=== PATIENT | male | born 1980 | race African-American/Black ===

== ENCOUNTER 2018-11-25 16:53 | Inpatient (IN) | payer BC ==
[~2018-11-25] VITALS: Ht 177.8 cm; Wt 94.3 kg
[2018-11-25] MEDS ORDERED: NAPROXEN 500 MG TABLET PO STA (17:13)
[2018-11-25] MEDS ORDERED: HYDROcodone/APAP 5/325MG 1 TAB TABLET PO ONE (17:30)
--- NOTE | 2018-11-25 18:05 | RAD ---
Examination: WRIST 3V LEFT History: pt fall today left wrist deformity hx of forearm sx Comparison/Correlation: None Findings: Total of 3 images of the left wrist were obtained. Comminuted fractures of the distal radial metaphysis with extension into the joint space noted. Mild displacement of fracture fragments noted. Linear extension of fracture into the distal radial diametaphyseal region is also evident. Transverse fracture of the ulnar styloid base is present with displacement. Plate and associated screws involving the distal ulna but are not fully included for complete assessment. Soft tissue swelling is noted at the distal ulnar region. Impression: Distal radial metaphyseal comminuted fracture is with intra-articular extension. Displaced ulnar styloid fracture. Electronically signed by: Omari Kaur MD (11/25/2018 6:02 PM) [place] [id number]
--- NOTE | 2018-11-25 18:07 | RAD ---
Examination: HIP RIGHT 2V WITH PELVIS History: FALL YESTURDAY Comparison/Correlation: None Findings: Frontal view of the pelvis was obtained. Frontal view of the right hip and frog-leg lateral view of the right hip were provided. Oblique fractures of the intertrochanteric region are present but nondisplaced. Above the knee amputation noted. Right hip joint space is adequate. Postoperative findings involving the symphysis pubis noted with plates and screws as well as surgical clips. The lateral aspect of the left greater trochanter was not fully included. Bone island noted and appears involve the left iliac bone medially. Repeat densities involving the right hip pelvic region noted corresponding to previous intervention. A screw is noted overlying the superior aspect of the right sacroiliac joint. Inferior vena cava filter noted. Impression: Nondisplaced right intertrochanteric fractures. Electronically signed by: Omari Kaur MD (11/25/2018 6:04 PM) [facility]
[2018-11-25 18:27] LABS: BASO % 0 % (0-3); EOS % 0 % (0-3); HEMATOCRIT 41.6 % (39.0-53.0); LYMPH # 1.5 x10^3/uL (1.0-4.8); LYMPH % 17 % (24-48); MEAN CORPUSCULAR HEMOGLOBIN 31 pg (25-35); MEAN CORPUSCULAR HGB CONC 34 g/dL (31-37); MEAN CORPUSCULAR VOLUME 92 fL (79-100); MONO # 0.8 x10^3/uL (0.0-1.1); MONO % 10 % (0-9); NEUT # 6.2 x10^3uL (1.8-7.7); NEUT % 72 % (31-73); PLATELET COUNT 215 x10^3/uL (140-400); RED BLOOD COUNT 4.52 x10^6/uL (4.30-5.70); RED CELL DISTRIBUTION WIDTH 14.4 % (11.5-14.5); WHITE BLOOD COUNT 8.6 x10^3/uL (4.0-11.0)
[2018-11-25 18:38] LABS: PROTHROMBIN TIME PATIENT 14.1 SEC (11.7-14.0)
[2018-11-25 18:45] LABS: CALCIUM 9.2 mg/dL (8.5-10.1); CREATININE 0.9 mg/dL (0.7-1.3); GFR 114.3; POTASSIUM 3.4 mmol/L (3.5-5.1)
[2018-11-25] MEDS ORDERED: ONDANSETRON PF 4 MG/2 ML VIAL. IV ONE (18:45)
[2018-11-25] MEDS ORDERED: MORPHINE SULFATE 10 MG/ML VIAL. IV ONE (18:45)
[2018-11-25 18:50] LABS: ALBUMIN 3.7 g/dL (3.4-5.0); ALBUMIN/GLOBULIN RATIO 0.9 (1.0-1.7); TOTAL BILIRUBIN 0.8 mg/dL (0.2-1.0); TOTAL PROTEIN 7.6 g/dL (6.4-8.2)
[2018-11-25] MEDS ORDERED: ONDANSETRON PF 4 MG/2 ML VIAL. IV PRN (19:15)
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
[2018-11-25 19:30] VITALS: BP 142/72
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
[2018-11-25 23:00] VITALS: BP 163/83
[2018-11-25] MEDS: MORPHINE SULFATE 4 MG/ML VIAL. IV PRN (23:28)
[2018-11-26] VITALS (11 sets, daily range): BP systolic 119–162; BP diastolic 63–93
[2018-11-26] MEDS: MORPHINE SULFATE 4 MG/ML VIAL. IV PRN ×2 (06:56→11:19)
[2018-11-26] MEDS ORDERED: IV RINGERS,LACTATED 1000ML 1,000 ML IV SCH (08:22)
[2018-11-26] MEDS ORDERED: HYDROmorphone 2 MG/ML VIAL IV PRN (08:30)
[2018-11-26] MEDS ORDERED: fentaNYL PF VIAL 100 MCG/2 ML VIAL IV PRN ×2 (08:30→20:15)
[2018-11-26] MEDS ORDERED: PROCHLORPERAZINE 10 MG/2 ML VIAL. IV PRN (08:30)
[2018-11-26] MEDS ORDERED: MORPHINE SULFATE 2 MG/ML VIAL. IV PRN ×2 (08:30→20:15)
[2018-11-26] MEDS ORDERED: ONDANSETRON PF 4 MG/2 ML VIAL. IV PRN ×3 (08:30→20:15)
[2018-11-26 08:45] LABS: BASO % 0 % (0-3); EOS % 1 % (0-3); HEMATOCRIT 41.5 % (39.0-53.0); HEMOGLOBIN 13.5 g/dL (13.0-17.5); LYMPH # 1.5 x10^3/uL (1.0-4.8); LYMPH % 22 % (24-48); MEAN CORPUSCULAR HEMOGLOBIN 31 pg (25-35); MEAN CORPUSCULAR HGB CONC 33 g/dL (31-37); MEAN CORPUSCULAR VOLUME 94 fL (79-100); MONO # 0.8 x10^3/uL (0.0-1.1); MONO % 12 % (0-9); NEUT # 4.4 x10^3uL (1.8-7.7); NEUT % 66 % (31-73); PLATELET COUNT 202 x10^3/uL (140-400); RED BLOOD COUNT 4.42 x10^6/uL (4.30-5.70); RED CELL DISTRIBUTION WIDTH 14.5 % (11.5-14.5); WHITE BLOOD COUNT 6.7 x10^3/uL (4.0-11.0)
[2018-11-26 09:00] LABS: CALCIUM 9.4 mg/dL (8.5-10.1); CREATININE 0.8 mg/dL (0.7-1.3); GFR 130.9; POTASSIUM 4.1 mmol/L (3.5-5.1)
[2018-11-26] MEDS ORDERED: LIDOCAINE 2% PF 5 ML VIAL. ONE (13:02)
[2018-11-26] MEDS ORDERED: ONDANSETRON PF 4 MG/2 ML VIAL. ONE (13:02)
[2018-11-26] MEDS ORDERED: fentaNYL PF VIAL 100 MCG/2 ML VIAL ONE (13:02)
[2018-11-26] MEDS ORDERED: PROPOFOL 20 ML IV ONE (13:02)
[2018-11-26] MEDS ORDERED: MIDAZOLAM HCL/PF 2 MG/2 ML VIAL. ONE (13:02)
[2018-11-26] MEDS ORDERED: DEXAMETHASONE SOD PHOS 4 MG/ML VIAL ONE (13:03)
[2018-11-26] MEDS ORDERED: ROCURONIUM 50 MG/5 ML VIAL. ONE (13:03)
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
[2018-11-26] MEDS ORDERED: BUPIVACAINE-EPI 0.25%-1:200000 MPF 30 ML VIAL. ONE ×2 (15:28→17:04)
[2018-11-26] MEDS ORDERED: FAMOTIDINE 20 MG/2 ML VIAL ONE (15:59)
[2018-11-26] MEDS ORDERED: SEVOFLURANE > 120 MINUTES. IH ONE (16:38)
[2018-11-26] MEDS ORDERED: ceFAZolin SODIUM 1 GM VIAL ONE (16:38)
[2018-11-26] MEDS ORDERED: PHENYLEPHRINE in 0.9% NACL PF 1 MG/10 ML SYRINGE. IV ONE (16:38)
[2018-11-26] MEDS: fentaNYL PF VIAL 100 MCG/2 ML VIAL IV PRN ×2 (18:51→19:06)
[2018-11-26] MEDS ORDERED: ceFAZolin SODIUM IV Push 1 GM VIAL. IVP ONE (20:00)
[2018-11-26] MEDS ORDERED: MORPHINE SULFATE 4 MG/ML VIAL. IV PRN (20:00)
[2018-11-26] MEDS ORDERED: HYDROcodone/APAP 5/325MG 1 TAB TABLET PO PRN (20:00)
[2018-11-26] MEDS ORDERED: oxyCODONE IR 5 MG TABLET PO PRN (20:15)
[2018-11-26] MEDS ORDERED: POLYETHYLENE GLYCOL 3350 17 GM PACKET. PO PRN (20:15)
[2018-11-26] MEDS ORDERED: HYDROcodone/APAP 7.5/325MG 1 TAB TABLET PO PRN (20:15)
[2018-11-26] MEDS ORDERED: DEXTROSE 50% 25 GM / 50ML DISP.SYRIN. IV PRN (20:15)
--- NOTE | 2018-11-26 20:25 | PDOC4 ---
Operative Note Operative Note Date of Procedure: November 26, 2018 Pre-Op Diagnoses: * S72.144A Nondisplaced intertrochanteric fracture of right femur, initial encounter for closed fracture * S52.572A Other intra-articular fracture of lower end of left radius, initial encounter for closed fracture Post-Op Diagnosis: same Procedures: * CPT 26410 right hip treatment of intertrochanteric femoral fracture with intramedullary implant, with interlocking screws * CPT 10709 left wrist open treatment of distal radial intra-articular fracture with internal fixation of 3 or more fragments Surgeon: Dandy Shane MD Pole Framer Machine: DAMEON Muñoz Anesthesia Type: General EBL: 200 mL Specimens Obtained: none Complications: None Implant Company: [employer] Tourniquet time: 35 minutes Implants: * Gamma 3 Locking Nail 11 mm x 180 mm x 125; Gamma 3 system Lag Screw Titanium 10.5 mm x 90 mm; locking screw fully threaded 5 mm x 40 mm * VariAx 2 Distal Radius Plating System with associated nonlocking and locking screws INDICATION FOR PROCEDURE: This patient is 38 years old uses an above-knee prosthesis, and fell, sustaining a right hip fracture and left wrist fracture. X-rays show a nondisplaced intertrochanteric hip fracture. The patient and I discussed the risks, benefits and alternatives of treatment. The alternative for hip fracture treatment is bedrest, which I generally do not recommend. I recommended intramedullary nailing, and I talked to him about the potential risks of this, including bleeding, infection, blood clots, malunion, nonunion or other potential surgical or anesthetic complications. X-rays showed an intraarticular distal radius fracture with displacement and shortening. I recommended open treatment with internal fixation. We talked about potential risks of surgery such as bleeding, infection, stiffness, arthritis need for hardware removal or other potential surgical or anesthetic complications. The patient stated understanding of the risks, benefits and alternatives. All of the questions about surgery were answered, and he desired to proceed. A written consent was obtained. PROCEDURE IN DETAIL: The patient was identified in the preoperative holding area. The correct right hip was marked by me. The patient was taken to the operating room, where the patient was anesthetized by the Department of Anesthesia. Preoperative antibiotics were given intravenously. A radiolucent table was used. The well leg was placed in a padded lithotomy leg walker. A time-out procedure was performed. The image intensifier was used, and the fracture site confirmed. All of the images were interpreted intraoperatively by me, and the image intensifier was used throughout the case. The right hip area was prepared in sterile fashion with ChloraPrep solution. Extremity drapes were used along with Ioban drapes around the hip. Throughout the case, Zaria my nurseryman assistant manipulated the above-knee amputation residual limb as needed. Fortunately no reduction was needed, so no traction was required. The residual limb was frequently abducted, abducted, or internally or externally rotated by Ms Mcfadden at my direction. An incision was made over the superior aspect of the greater trochanter. A 3.2 mm guide pin was placed at the tip of the greater trochanter, and advanced into the intramedullary canal. The one step conical reamer was used over the guidewire, and a reamer sleeve was used to protect the soft tissues. A guide wire was placed down the intramedullary canal, and reaming up to size 13 mm was performed to allow the nail to be inserted easily.The chosen nail was attached to the targeting device with the Nail Holding Screw. The nail was placed down the canal on the targeting device and the position confirmed on the image intensifier. A second incision was now used over the lower part of the greater trochanter, to place a guide pin through the guide, near the center-center position of the femoral head, and measured. The tunnel for the lag screw was reamed using the cannulated Lag Screw Step Drill. The chosen lag screw was inserted using the guide and advanced until there was a low tip-apex distance, by using sequential checks on the image intensifier. Traction on the HANA table was released. A Set Screw was now placed to lock the Lag Screw. Finally, a 5.0 mm diameter Distal Cross Lock Screw was, using the targeting guide after predrilling, and measuring. Satisfactory fracture reduction and hardware position was obtained using image intensifier views in multiple planes. Copious irrigation was used and the fascia was closed with #2 Vicryl. Bovie electrocautery was used for hemostasis. I completed the closure with 2-0 Vicryl and sarah. Bupivacaine with epinephrine was injected for hemostasis and pain relief.A bulky sterile dressing was applied. Antibiotics were redosed. A padded tourniquet was placed on the upper right arm. The limb was prepared with Chloraprep Surgical Solution, and sterile drapes were applied. An Esmarch bandage was used to exsanguinate the limb and the tourniquet was inflated. The volar approach of Vinicio was used distally. Sharp dissection was used and Bovie electrocautery was used as needed for hemostasis. The flexor carpi radialis tendon was retracted ulnarly to protect the median nerve. The brachioradialis was retracted radially to protect the radial artery. My nurseryman assistant held small Hohmann retractors on the radial side of the distal fragment and ulnar side of the proximal fragment to help maintain reduction. A Weitlaner retractor was also placed. Subperiosteal dissection of the pronator quadratus was performed after an L incision was made and the muscle was reflected across the fracture site. The fracture was easily identified but markedly displaced, comminuted and unstable. I performed a reduction, and using longitudinal traction, palmar angulation and ulnar deviation. With the comminuted intra-articular fracture held reduced, multiple K wires were placed to stabilize the fracture. My nurseryman assistant held Hohmann retractors radially and ulnarly to help restore the articular surface and compressed the Near the scapholunate interval.The volar lunate facet fracture was fixated with a K wire which was left in place as part of the fixation for stabilization of that fragment. The image intensifier was used throughout the procedure. All of the images were interpreted intraoperatively by me. I used the VariAx plate for a left wrist. I placed a preliminary beaded guidewire, and then a cortical screw proximally and used the image intensifier to adjust the position of the plate. I then applied distal nonlocking screws for compression to the bone to the plate, followed by locking screws distally. I placed additional cortex locking screws proximally. I confirmed the intraarticular reduction the image intensifier. After satisfactory reduction and satisfactory fixation with all the screws, final images were taken. Copious irrigation was used. The tourniquet was released and Bovie electrocautery was used for hemostasis. 2-0 Vicryl suture was used on a bleeding branch from the radial artery. Local anesthetic was injected. The incision was closed with 3-0 Vicryl in the subcutaneous tissues and 3-0 Prolene in the skin. Xeroform and a sterile dressing and a volar splint were applied. Needle and sponge counts were correct. There were no apparent complic ations. The patient was gently transferred from the fracture table back to a hospital bed. There were no apparent complications. DANDY SHANE MD Nov 26, 2018 20:25
[2018-11-26] MEDS: ASPIRIN ENTERIC COATED 325 MG TABLET.DR. PO SCH (21:24)
[2018-11-26] MEDS: IV 1/2 NORMAL SALINE 1,000 ML IV SCH (21:25)
[2018-11-26] MEDS: HYDROcodone/APAP 7.5/325MG 1 TAB TABLET PO PRN (21:25)
[2018-11-27] MEDS: MORPHINE SULFATE 4 MG/ML VIAL. IV PRN ×2 (02:31→06:04)
[2018-11-27 03:00] VITALS: BP 138/78
[2018-11-27] MEDS ORDERED: MAGNESIUM HYDROXIDE 2,400 MG/30 ML ORAL.SUSP. PO PRN (06:00)
[2018-11-27 07:00] VITALS: BP 147/59
[2018-11-27 07:16] LABS: BASO % 0 % (0-3); EOS % 0 % (0-3); HEMOGLOBIN 12.5 g/dL (13.0-17.5); LYMPH # 1.5 x10^3/uL (1.0-4.8); LYMPH % 13 % (24-48); MEAN CORPUSCULAR HEMOGLOBIN 31 pg (25-35); MEAN CORPUSCULAR HGB CONC 33 g/dL (31-37); MEAN CORPUSCULAR VOLUME 94 fL (79-100); MONO % 9 % (0-9); NEUT # 9.4 x10^3uL (1.8-7.7); NEUT % 79 % (31-73); PLATELET COUNT 205 x10^3/uL (140-400); RED BLOOD COUNT 4.06 x10^6/uL (4.30-5.70); RED CELL DISTRIBUTION WIDTH 14.1 % (11.5-14.5); WHITE BLOOD COUNT 11.9 x10^3/uL (4.0-11.0)
[2018-11-27 07:22] LABS: CREATININE 0.7 mg/dL (0.7-1.3); GFR 152.7
[2018-11-27] MEDS: HYDROcodone/APAP 7.5/325MG 1 TAB TABLET PO PRN ×4 (07:39→23:06)
[2018-11-27] MEDS: CHOLECALCIFEROL (VITAMIN D3) 1,000 UNIT TABLET PO SCH (08:58)
[2018-11-27] MEDS: ASPIRIN ENTERIC COATED 325 MG TABLET.DR. PO SCH ×2 (08:58→20:56)
[2018-11-27] MEDS: SENNOSIDES/DOCUSATE 8.6/50MG TABLET. PO SCH (08:58)
[2018-11-27] MEDS: MULTIVITAMIN with MINERAL TABLET. PO SCH (08:58)
--- NOTE | 2018-11-27 10:32 | PDOC ---
PROGRESS NOTES Chief Complaint Chief Complaint Right intertrochanteric fracture Left wrist fracture WILL NEED WALKER FOR HOME ON D/C History of Present Illness History of Present Illness Patient was resting comfortably in bed today. He has no complaints. Surgery 11/26 with ortho. Vitals Vitals Vital Signs Date Time Temp Pulse Resp B/P (MAP) Pulse Ox O2 Delivery O2 Flow Rate FiO2 11/27/18 08:58 Room Air 11/27/18 07:00 98.6 82 16 147/59 (88) 96 98.6 11/26/18 18:51 8.0 Physical Exam General: Alert, Cooperative, No acute distress Heart: Regular rate, Normal S1, Normal S2 Lungs: Clear (No wheezes, rales, or rhonchi) Abdomen: Normal bowel sounds, Soft, No hepatosplenomegaly Extremities: No clubbing, No cyanosis, No edema, Other (the left wrist has tenderness. There is a dorsal wrist transverse scar from a traumatic skin injury. There is circumferential swelling and limited motion. Light touch sensation and motor function showed no evidence of specific radial nerve, median nerve, or ulnar nerve injury, and he had a flicker of motion for all. The most difficulty was with wrist extension and finger extension. Capillary refill is normal. The gross alignment shows swelling but no severe deformity. Tender at the distal radius as expected with a fracture. The skin is intact over the left distal radius fracture. The right hip has tenderness to palpation. The skin is intact over the fracture. 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.) Skin: No breakdown Labs LABS Laboratory Tests Test 11/27/18 05:50 White Blood Count 11.9 x10^3/uL (4.0-11.0) Red Blood Count 4.06 x10^6/uL (4.30-5.70) Hemoglobin 12.5 g/dL (13.0-17.5) Hematocrit 38.0 % (39.0-53.0) Mean Corpuscular Volume 94 fL (79-100) Mean Corpuscular Hemoglobin 31 pg (25-35) Mean Corpuscular Hemoglobin Concent 33 g/dL (31-37) Red Cell Distribution Width 14.1 % (11.5-14.5) Platelet Count 205 x10^3/uL (140-400) Neutrophils (%) (Auto) 79 % (31-73) Lymphocytes (%) (Auto) 13 % (24-48) Monocytes (%) (Auto) 9 % (0-9) Eosinophils (%) (Auto) 0 % (0-3) Basophils (%) (Auto) 0 % (0-3) Neutrophils # (Auto) 9.4 x10^3uL (1.8-7.7) Lymphocytes # (Auto) 1.5 x10^3/uL (1.0-4.8) Monocytes # (Auto) 1.0 x10^3/uL (0.0-1.1) Eosinophils # (Auto) 0.0 x10^3/uL (0.0-0.7) Basophils # (Auto) 0.0 x10^3/uL (0.0-0.2) Sodium Level 134 mmol/L (136-145) Potassium Level 4.0 mmol/L (3.5-5.1) Chloride Level 99 mmol/L (98-107) Carbon Dioxide Level 27 mmol/L (21-32) Anion Gap 8 (6-14) Blood Urea Nitrogen 7 mg/dL (8-26) Creatinine 0.7 mg/dL (0.7-1.3) Estimated GFR (Cockcroft-Gault) 152.7 Glucose Level 103 mg/dL (70-99) Calcium Level 9.0 mg/dL (8.5-10.1) 25-Hydroxy Vitamin D Total 6.7 ng/mL (30-100) Assessment and Plan Assessmemt and Plan Problems Medical Problems: (1) Fall down steps Status: Acute (2) Fracture of ulnar styloid Status: Acute Comment Review of Relevant I have reviewed the following items tarah (where applicable) has been applied. Labs Laboratory Tests Test 11/25/18 18:10 11/26/18 07:53 11/27/18 05:50 White Blood Count 8.6 x10^3/uL (4.0-11.0) 6.7 x10^3/uL (4.0-11.0) 11.9 x10^3/uL (4.0-11.0) Red Blood Count 4.52 x10^6/uL (4.30-5.70) 4.42 x10^6/uL (4.30-5.70) 4.06 x10^6/uL (4.30-5.70) Hemoglobin 14.0 g/dL (13.0-17.5) 13.5 g/dL (13.0-17.5) 12.5 g/dL (13.0-17.5) Hematocrit 41.6 % (39.0-53.0) 41.5 % (39.0-53.0) 38.0 % (39.0-53.0) Mean Corpuscular Volume 92 fL (79-100) 94 fL (79-100) 94 fL (79-100) Mean Corpuscular Hemoglobin 31 pg (25-35) 31 pg (25-35) 31 pg (25-35) Mean Corpuscular Hemoglobin Concent 34 g/dL (31-37) 33 g/dL (31-37) 33 g/dL (31-37) Red Cell Distribution Width 14.4 % (11.5-14.5) 14.5 % (11.5-14.5) 14.1 % (11.5-14.5) Platelet Count 215 x10^3/uL (140-400) 202 x10^3/uL (140-400) 205 x10^3/uL (140-400) Neutrophils (%) (Auto) 72 % (31-73) 66 % (31-73) 79 % (31-73) Lymphocytes (%) (Auto) 17 % (24-48) 22 % (24-48) 13 % (24-48) Monocytes (%) (Auto) 10 % (0-9) 12 % (0-9) 9 % (0-9) Eosinophils (%) (Auto) 0 % (0-3) 1 % (0-3) 0 % (0-3) Basophils (%) (Auto) 0 % (0-3) 0 % (0-3) 0 % (0-3) Neutrophils # (Auto) 6.2 x10^3uL (1.8-7.7) 4.4 x10^3uL (1.8-7.7) 9.4 x10^3uL (1.8-7.7) Lymphocytes # (Auto) 1.5 x10^3/uL (1.0-4.8) 1.5 x10^3/uL (1.0-4.8) 1.5 x10^3/uL (1.0-4.8) Monocytes # (Auto) 0.8 x10^3/uL (0.0-1.1) 0.8 x10^3/uL (0.0-1.1) 1.0 x10^3/uL (0.0-1.1) Eosinophils # (Auto) 0.0 x10^3/uL (0.0-0.7) 0.0 x10^3/uL (0.0-0.7) 0.0 x10^3/uL (0.0-0.7) Basophils # (Auto) 0.0 x10^3/uL (0.0-0.2) 0.0 x10^3/uL (0.0-0.2) 0.0 x10^3/uL (0.0-0.2) Prothrombin Time 14.1 SEC (11.7-14.0) Prothromb Time International Ratio 1.1 (0.8-1.1) Activated Partial Thromboplast Time 31 SEC (24-38) Sodium Level 138 mmol/L (136-145) 138 mmol/L (136-145) 134 mmol/L (136-145) Potassium Level 3.4 mmol/L (3.5-5.1) 4.1 mmol/L (3.5-5.1) 4.0 mmol/L (3.5-5.1) Chloride Level 101 mmol/L (98-107) 101 mmol/L (98-107) 99 mmol/L (98-107) Carbon Dioxide Level 27 mmol/L (21-32) 26 mmol/L (21-32) 27 mmol/L (21-32) Anion Gap 10 (6-14) 11 (6-14) 8 (6-14) Blood Urea Nitrogen 8 mg/dL (8-26) 10 mg/dL (8-26) 7 mg/dL (8-26) Creatinine 0.9 mg/dL (0.7-1.3) 0.8 mg/dL (0.7-1.3) 0.7 mg/dL (0.7-1.3) Estimated GFR (Cockcroft-Gault) 114.3 130.9 152.7 BUN/Creatinine Ratio 9 (6-20) Glucose Level 136 mg/dL (70-99) 114 mg/dL (70-99) 103 mg/dL (70-99) Calcium Level 9.2 mg/dL (8.5-10.1) 9.4 mg/dL (8.5-10.1) 9.0 mg/dL (8.5-10.1) Total Bilirubin 0.8 mg/dL (0.2-1.0) Aspartate Amino Transf (AST/SGOT) 24 U/L (15-37) Alanine Aminotransferase (ALT/SGPT) 40 U/L (16-63) Alkaline Phosphatase 67 U/L (46-116) Total Protein 7.6 g/dL (6.4-8.2) Albumin 3.7 g/dL (3.4-5.0) Albumin/Globulin Ratio 0.9 (1.0-1.7) 25-Hydroxy Vitamin D Total 6.7 ng/mL (30-100) Laboratory Tests Test 11/27/18 05:50 White Blood Count 11.9 x10^3/uL (4.0-11.0) Red Blood Count 4.06 x10^6/uL (4.30-5.70) Hemoglobin 12.5 g/dL (13.0-17.5) Hematocrit 38.0 % (39.0-53.0) Mean Corpuscular Volume 94 fL (79-100) Mean Corpuscular Hemoglobin 31 pg (25-35) Mean Corpuscular Hemoglobin Concent 33 g/dL (31-37) Red Cell Distribution Width 14.1 % (11.5-14.5) Platelet Count 205 x10^3/uL (140-400) Neutrophils (%) (Auto) 79 % (31-73) Lymphocytes (%) (Auto) 13 % (24-48) Monocytes (%) (Auto) 9 % (0-9) Eosinophils (%) (Auto) 0 % (0-3) Basophils (%) (Auto) 0 % (0-3) Neutrophils # (Auto) 9.4 x10^3uL (1.8-7.7) Lymphocytes # (Auto) 1.5 x10^3/uL (1.0-4.8) Monocytes # (Auto) 1.0 x10^3/uL (0.0-1.1) Eosinophils # (Auto) 0.0 x10^3/uL (0.0-0.7) Basophils # (Auto) 0.0 x10^3/uL (0.0-0.2) Sodium Level 134 mmol/L (136-145) Potassium Level 4.0 mmol/L (3.5-5.1) Chloride Level 99 mmol/L (98-107) Carbon Dioxide Level 27 mmol/L (21-32) Anion Gap 8 (6-14) Blood Urea Nitrogen 7 mg/dL (8-26) Creatinine 0.7 mg/dL (0.7-1.3) Estimated GFR (Cockcroft-Gault) 152.7 Glucose Level 103 mg/dL (70-99) Calcium Level 9.0 mg/dL (8.5-10.1) 25-Hydroxy Vitamin D Total 6.7 ng/mL (30-100) Medications Current Medications Acetaminophen/ Hydrocodone Bitart (Lortab 5/325) 2 tab 1X ONCE PO Last administered on 11/25/18at 17:35; Start 11/25/18 at 17:30; Stop 11/25/18 at 17:31; Status DC Naproxen (Naprosyn) 500 mg 1X STAT PO Last administered on 11/25/18at 17:34; Start 11/25/18 at 17:13; Stop 11/25/18 at 17:15; Status DC Morphine Sulfate (Morphine Sulfate) 5 mg 1X ONCE IV Last administered on 11/25/18at 18:31; Start 11/25/18 at 18:45; Stop 11/25/18 at 18:46; Status DC Ondansetron HCl (Zofran) 4 mg 1X ONCE IV Last administered on 11/25/18at 18:30; Start 11/25/18 at 18:45; Stop 11/25/18 at 18:46; Status DC Ondansetron HCl (Zofran) 4 mg PRN Q8HRS PRN IV NAUSEA/VOMITING; Start 11/25/18 at 19:15; Stop 11/26/18 at 19:14; Status DC Morphine Sulfate (Morphine Sulfate) 4 mg PRN Q2HR PRN IV PAIN Last administered on 11/26/18at 11:19; Start 11/25/18 at 19:15; Stop 11/26/18 at 19:14; Status DC Ondansetron HCl (Zofran) 4 mg PRN Q6HRS PRN IV NAUSEA/VOMITING; Start 11/26/18 at 08:30; Stop 11/26/18 at 21:00; Status DC Fentanyl Citrate (Fentanyl 2ml Vial) 25 mcg PRN Q5MIN PRN IV MILD PAIN; Start 11/26/18 at 08:30; Stop 11/26/18 at 21:00; Status DC Fentanyl Citrate (Fentanyl 2ml Vial) 50 mcg PRN Q5MIN PRN IV MODERATE TO SEVERE PAIN Last administered on 11/26/18at 19:06; Start 11/26/18 at 08:30; Stop 11/26/18 at 21:00; Status DC Morphine Sulfate (Morphine Sulfate) 1 mg PRN Q10MIN PRN IV SEVERE PAIN; Start 11/26/18 at 08:30; Stop 11/26/18 at 21:00; Status DC Ringer's Solution 1,000 ml @ 30 mls/hr Q24H IV Last administered on 11/26/18at 14:30; Start 11/26/18 at 08:22; Stop 11/26/18 at 20:21; Status DC Hydromorphone HCl (Dilaudid) 0.5 mg PRN Q10MIN PRN IV SEV PAIN, Second choice; Start 11/26/18 at 08:30; Stop 11/26/18 at 21:00; Status DC Prochlorperazine Edisylate (Compazine) 5 mg PACU PRN PRN IV NAUSEA, MRX1; Start 11/26/18 at 08:30; Stop 11/26/18 at 21:00; Status DC Ondansetron HCl (Zofran) 4 mg STK-MED ONCE .ROUTE ; Start 11/26/18 at 13:02; Stop 11/26/18 at 13:03; Status DC Propofol 20 ml @ As Directed STK-MED ONCE IV ; Start 11/26/18 at 13:02; Stop 11/26/18 at 13:03; Status DC Lidocaine HCl (Lidocaine Pf 2% Vial) 5 ml STK-MED ONCE .ROUTE ; Start 11/26/18 at 13:02; Stop 11/26/18 at 13:03; Status DC Midazolam HCl (Versed) 2 mg STK-MED ONCE .ROUTE ; Start 11/26/18 at 13:02; Stop 11/26/18 at 13:03; Status DC Fentanyl Citrate (Fentanyl 2ml Vial) 100 mcg STK-MED ONCE .ROUTE ; Start 11/26/18 at 13:02; Stop 11/26/18 at 13:03; Status DC Dexamethasone Sodium Phosphate (Decadron) 4 mg STK-MED ONCE .ROUTE ; Start 11/26/18 at 13:03; Stop 11/26/18 at 13:04; Status DC Rocuronium [place] (Zemuron) 50 mg STK-MED ONCE .ROUTE ; Start 11/26/18 at 13:03; Stop 11/26/18 at 13:04; Status DC Cefazolin Sodium/ Dextrose 50 ml @ 100 mls/hr 1X PREOP PRN IV comm Last administered on 11/26/18at 15:55; Start 11/26/18 at 14:00; Stop 11/26/18 at 19:40; Status DC Famotidine (Pepcid Vial) 20 mg STK-MED ONCE .ROUTE ; Start 11/26/18 at 15:59; Stop 11/26/18 at 16:00; Status DC Bupivacaine HCl/ Epinephrine Bitart (Sensorcaine-Epi 0.25%-1:209544 Mpf) 30 ml STK-MED ONCE .ROUTE Last administered on 11/26/18at 16:31; Start 11/26/18 at 15:28; Stop 11/26/18 at 16:28; Status DC Sevoflurane (Ultane) 90 ml STK-MED ONCE IH ; Start 11/26/18 at 16:38; Stop 11/26/18 at 16:39; Status DC Cefazolin Sodium (Ancef) 1 gm STK-MED ONCE .ROUTE ; Start 11/26/18 at 16:38; Stop 11/26/18 at 16:39; Status DC Phenylephrine HCl (PHENYLEPHRINE in 0.9% NACL PF) 1 mg STK-MED ONCE IV ; Start 11/26/18 at 16:38; Stop 11/26/18 at 16:39; Status DC Cefazolin Sodium 50 ml @ 100 mls/hr 1X ONCE IV Last administered on 11/26/18at 17:13; Start 11/26/18 at 17:15; Stop 11/26/18 at 17:44; Status DC Bupivacaine HCl/ Epinephrine Bitart (Sensorcaine-Epi 0.25%-1:873639 Mpf) 30 ml STK-MED ONCE .ROUTE Last administered on 11/26/18at 16:31; Start 11/26/18 at 17:04; Stop 11/26/18 at 18:04; Status DC Cefazolin Sodium 50 ml @ 100 mls/hr 1X ONCE IV ; Start 11/26/18 at 17:00; Stop 11/26/18 at 17:29; Status UNV Cefazolin Sodium (Ancef) 1 gm 1X ONCE IVP ; Start 11/26/18 at 20:00; Stop 11/26/18 at 20:01; Status DC Acetaminophen/ Hydrocodone Bitart (Lortab 5/325) 2 tab PRN Q4HRS PRN PO PAIN; Start 11/26/18 at 20:00; Status Cancel Morphine Sulfate (Morphine Sulfate) 4 mg PRN Q2HR PRN IV PAIN Last administered on 11/26/18at 20:07; Start 11/26/18 at 20:00; Stop 11/26/18 at 20:29; Status DC Ondansetron HCl (Zofran) 4 mg PRN Q8HRS PRN IV NAUSEA/VOMITING; Start 11/26/18 at 20:00; Status Cancel Oxycodone HCl (Roxicodone) 5 mg PRN Q3HRS PRN PO PAIN; Start 11/26/18 at 20:15 Morphine Sulfate (Morphine Sulfate) 2 mg PRN Q1HR PRN IV PAIN; Start 11/26/18 at 20:15 Fentanyl Citrate (Fentanyl 2ml Vial) 25 mcg PRN Q1HR PRN IV PAIN; Start 11/26/18 at 20:15 Multivitamins (Thera M Plus) 1 tab DAILY PO Last administered on 11/27/18at 08:58; Start 11/27/18 at 09:00 Senna/Docusate Sodium (Senna Plus) 1 tab DAILY PO Last administered on 11/27at 08:58; Start 11/27/18 at 09:00 Polyethylene Glycol (miraLAX PACKET) 17 gm PRN DAILY PRN PO CONSTIPATION; Start 11/26/18 at 20:15 Vitamin D (Vitamin D3) 1,000 unit DAILY PO Last administered on 11/27/18at 08:58; Start 11/27/18 at 09:00 Sodium Chloride 1,000 ml @ 75 mls/hr [id number] IV Last administered on 11/26/18at 21:25; Start 11/26/18 at 21:00 Ondansetron HCl (Zofran) 4 mg PRN Q4HRS PRN IV NAUSEA/VOMITING; Start 11/26/18 at 20:15 Magnesium Hydroxide (Milk Of Magnesia) 2,400 mg 1X PRN PRN PO CONSTIPATION; Start 11/27/18 at 06:00; Stop 11/28/18 at 05:59 Bisacodyl (Dulcolax Supp) 10 mg 1X PRN PRN RI CONSTIPATION; Start 11/27/18 at 16:00; Stop 11/28/18 at 15:59 Acetaminophen/ Hydrocodone Bitart (Lortab 7.5/325) 1 tab PRN Q4HRS PRN PO PAIN; Start 11/26/18 at 20:15 Morphine Sulfate (Morphine Sulfate) 4 mg PRN Q2HR PRN IV PAIN Last administered on 11/27/18at 06:04; Start 11/26/18 at 20:15 Acetaminophen/ Hydrocodone Bitart (Lortab 7.5/325) 2 tab PRN Q4HRS PRN PO PAIN Last administered on 11/27/18at 07:39; Start 11/26/18 at 20:15 Dextrose (Dextrose 50%-Water Syringe) 12.5 gm PRN Q15MIN PRN IV SEE COMMENTS; Start 11/26/18 at 20:15 Cefazolin Sodium/ Dextrose 50 ml @ 100 mls/hr Q6H IV Last administered on 11/27/18at 04:52; Start 11/26/18 at 22:00; Stop 11/27/18 at 10:29; Status DC Aspirin (Ecotrin) 325 mg BID PO Last administered on 11/27/18 08:58; Start 11/26/18 at 21:00 Vitals/I & O Vital Sign - Last 24 Hours 11/26/18 11/26/18 11/26/18 11/26/18 11:00 11:19 12:35 14:26 Temp 98.0 97.0 98.0 97.0 Pulse 66 70 Resp 18 16 B/P (MAP) 119/81 (94) 129/78 Pulse Ox 99 97 O2 Delivery Room Air Room Air Room Air Room Air 11/26/18 11/26/18 11/26/18 11/26/18 18:33 18:34 18:49 18:51 Temp 97.7 97.7 97.7 97.7 Pulse 86 85 Resp 22 24 22 B/P (MAP) 142/67 144/74 Pulse Ox 100 100 100 O2 Delivery Room Air Simple Mask Simple Mask Simple Mask O2 Flow Rate 8 8 8.0 11/26/18 11/26/18 11/26/18 11/26/18 19:04 19:06 19:15 19:30 Temp 97.7 98.5 98.2 97.7 98.5 98.2 Pulse 88 86 88 Resp 24 24 18 B/P (MAP) 156/89 151/82 147/84 (105) Pulse Ox 98 97 97 98 O2 Delivery Room Air Room Air Room Air Room Air 11/26/18 11/26/18 11/26/18 11/26/18 19:45 19:50 20:00 20:07 Pulse 82 85 Resp 20 B/P (MAP) 138/93 (108) 157/92 (113) Pulse Ox 98 97 O2 Delivery Room Air Room Air Room Air Room Air 11/26/18 11/26/18 11/26/18 11/26/18 20:15 20:30 20:54 21:25 Pulse 83 82 92 Resp 20 B/P (MAP) 162/85 (110) 138/86 (103) 154/86 (108) Pulse Ox 96 92 92 O2 Delivery Room Air Room Air Room Air Room Air 11/26/18 11/26/18 11/26/18 11/27/18 22:17 22:25 23:00 02:31 Temp 98.2 98.2 Pulse 98 96 Resp 20 18 20 B/P (MAP) 149/92 (111) 152/77 (102) Pulse Ox 92 96 O2 Delivery Room Air Room Air Room Air 11/27/18 11/27/18 11/27/18 11/27/18 03:00 03:01 06:04 07:00 Temp 98.5 98.6 98.5 98.6 Pulse 86 82 Resp 18 20 20 16 B/P (MAP) 138/78 (98) 147/59 (88) Pulse Ox 97 96 O2 Delivery Room Air Room Air Room Air Room Air 11/27/18 11/27/18 11/27/18 07:39 07:45 08:58 O2 Delivery Room Air Room Air Room Air Intake and Output 11/26/18 11/26/18 11/27/18 14:59 22:59 06:59 Intake Total 1400 ml Output Total 200 ml 1000 ml Balance 1200 ml -1000 ml JAKUB GRIFFIN MD Nov 27, 2018 10:32
[2018-11-27 11:00] VITALS: BP 135/88
[2018-11-27] MEDS: IV 1/2 NORMAL SALINE 1,000 ML IV SCH ×2 (11:04→23:40)
[2018-11-27 15:00] VITALS: BP 141/70
[2018-11-27] MEDS ORDERED: BISACODYL 10 MG SUPP.RECT. PR PRN (16:00)
--- NOTE | 2018-11-27 16:12 | NUR ---
SW following for discharge planning. Discussed with RN, pt is from home with girlfriend. Pt needing a platform walker upon discharge, PT/OT recommending home with home health or home with assistance. KEVIN met with pt to determine preference of walker provider, pt did not have a preference. KEVIN contacted [facility] (ph: [phone], fax: [phone]), they take pt's insurance and can deliver to [facility] hopefully tomorrow. KEVIN faxed referral, awaiting confirmation. KEVIN will continue to follow, RN notified.
[2018-11-27 19:34] VITALS: BP 134/68
[2018-11-27 23:30] VITALS: BP 132/71
[2018-11-28 03:00] VITALS: BP 146/72
[2018-11-28 04:23] LABS: BASO % 0 % (0-3); EOS # 0.1 x10^3/uL (0.0-0.7); EOS % 1 % (0-3); HEMATOCRIT 35.6 % (39.0-53.0); HEMOGLOBIN 11.9 g/dL (13.0-17.5); LYMPH # 2.2 x10^3/uL (1.0-4.8); LYMPH % 27 % (24-48); MEAN CORPUSCULAR HEMOGLOBIN 31 pg (25-35); MEAN CORPUSCULAR HGB CONC 34 g/dL (31-37); MEAN CORPUSCULAR VOLUME 93 fL (79-100); MONO # 0.8 x10^3/uL (0.0-1.1); MONO % 9 % (0-9); NEUT # 5.1 x10^3uL (1.8-7.7); NEUT % 63 % (31-73); PLATELET COUNT 209 x10^3/uL (140-400); RED BLOOD COUNT 3.81 x10^6/uL (4.30-5.70); RED CELL DISTRIBUTION WIDTH 13.8 % (11.5-14.5); WHITE BLOOD COUNT 8.1 x10^3/uL (4.0-11.0)
[2018-11-28 05:11] LABS: CALCIUM 9.1 mg/dL (8.5-10.1); CREATININE 0.8 mg/dL (0.7-1.3); GFR 130.9; POTASSIUM 3.9 mmol/L (3.5-5.1)
[2018-11-28] MEDS: HYDROcodone/APAP 7.5/325MG 1 TAB TABLET PO PRN ×2 (05:15→13:33)
[2018-11-28 07:00] VITALS: BP 124/68
[2018-11-28] MEDS: ASPIRIN ENTERIC COATED 325 MG TABLET.DR. PO SCH (08:57)
[2018-11-28] MEDS: MULTIVITAMIN with MINERAL TABLET. PO SCH (08:57)
[2018-11-28] MEDS: CHOLECALCIFEROL (VITAMIN D3) 1,000 UNIT TABLET PO SCH (08:57)
[2018-11-28] MEDS: SENNOSIDES/DOCUSATE 8.6/50MG TABLET. PO SCH (08:57)
[2018-11-28 11:00] VITALS: BP 136/80
--- NOTE | 2018-11-28 12:09 | PDOC ---
PROGRESS NOTES Chief Complaint Chief Complaint Right intertrochanteric fracture Left wrist fracture WILL NEED WALKER FOR HOME ON D/C History of Present Illness History of Present Illness Patient was resting comfortably in bed today. He has no complaints. Surgery 11/26 with ortho. d/c home today with home health Vitals Vitals Vital Signs Date Time Temp Pulse Resp B/P (MAP) Pulse Ox O2 Delivery O2 Flow Rate FiO2 11/28/18 11:00 98.0 98 16 136/80 (98) 98 Room Air 98.0 Physical Exam General: Alert, Oriented X3, Cooperative, No acute distress Heart: Regular rate, Normal S1, Normal S2 Lungs: Clear (No wheezes, rales, or rhonchi) Abdomen: Normal bowel sounds, Soft, No hepatosplenomegaly Extremities: No clubbing, No cyanosis, No edema, Other (the left wrist has tenderness. There is a dorsal wrist transverse scar from a traumatic skin injury. There is circumferential swelling and limited motion. Light touch sensation and motor function showed no evidence of specific radial nerve, median nerve, or ulnar nerve injury, and he had a flicker of motion for all. The most difficulty was with wrist extension and finger extension. Capillary refill is normal. The gross alignment shows swelling but no severe deformity. Tender at the distal radius as expected with a fracture. The skin is intact over the left distal radius fracture. The right hip has tenderness to palpation. The skin is intact over the fracture. 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.) Skin: No breakdown, No significant lesion Labs LABS Laboratory Tests Test 11/28/18 03:25 White Blood Count 8.1 x10^3/uL (4.0-11.0) Red Blood Count 3.81 x10^6/uL (4.30-5.70) Hemoglobin 11.9 g/dL (13.0-17.5) Hematocrit 35.6 % (39.0-53.0) Mean Corpuscular Volume 93 fL (79-100) Mean Corpuscular Hemoglobin 31 pg (25-35) Mean Corpuscular Hemoglobin Concent 34 g/dL (31-37) Red Cell Distribution Width 13.8 % (11.5-14.5) Platelet Count 209 x10^3/uL (140-400) Neutrophils (%) (Auto) 63 % (31-73) Lymphocytes (%) (Auto) 27 % (24-48) Monocytes (%) (Auto) 9 % (0-9) Eosinophils (%) (Auto) 1 % (0-3) Basophils (%) (Auto) 0 % (0-3) Neutrophils # (Auto) 5.1 x10^3uL (1.8-7.7) Lymphocytes # (Auto) 2.2 x10^3/uL (1.0-4.8) Monocytes # (Auto) 0.8 x10^3/uL (0.0-1.1) Eosinophils # (Auto) 0.1 x10^3/uL (0.0-0.7) Basophils # (Auto) 0.0 x10^3/uL (0.0-0.2) Sodium Level 138 mmol/L (136-145) Potassium Level 3.9 mmol/L (3.5-5.1) Chloride Level 102 mmol/L (98-107) Carbon Dioxide Level 28 mmol/L (21-32) Anion Gap 8 (6-14) Blood Urea Nitrogen 7 mg/dL (8-26) Creatinine 0.8 mg/dL (0.7-1.3) Estimated GFR (Cockcroft-Gault) 130.9 Glucose Level 107 mg/dL (70-99) Calcium Level 9.1 mg/dL (8.5-10.1) Assessment and Plan Assessmemt and Plan Problems Medical Problems: (1) Fall down steps Status: Acute (2) Fracture of ulnar styloid Status: Acute Comment Review of Relevant I have reviewed the following items tarah (where applicable) has been applied. Labs Laboratory Tests Test 11/27/18 05:50 11/28/18 03:25 White Blood Count 11.9 x10^3/uL (4.0-11.0) 8.1 x10^3/uL (4.0-11.0) Red Blood Count 4.06 x10^6/uL (4.30-5.70) 3.81 x10^6/uL (4.30-5.70) Hemoglobin 12.5 g/dL (13.0-17.5) 11.9 g/dL (13.0-17.5) Hematocrit 38.0 % (39.0-53.0) 35.6 % (39.0-53.0) Mean Corpuscular Volume 94 fL (79-100) 93 fL (79-100) Mean Corpuscular Hemoglobin 31 pg (25-35) 31 pg (25-35) Mean Corpuscular Hemoglobin Concent 33 g/dL (31-37) 34 g/dL (31-37) Red Cell Distribution Width 14.1 % (11.5-14.5) 13.8 % (11.5-14.5) Platelet Count 205 x10^3/uL (140-400) 209 x10^3/uL (140-400) Neutrophils (%) (Auto) 79 % (31-73) 63 % (31-73) Lymphocytes (%) (Auto) 13 % (24-48) 27 % (24-48) Monocytes (%) (Auto) 9 % (0-9) 9 % (0-9) Eosinophils (%) (Auto) 0 % (0-3) 1 % (0-3) Basophils (%) (Auto) 0 % (0-3) 0 % (0-3) Neutrophils # (Auto) 9.4 x10^3uL (1.8-7.7) 5.1 x10^3uL (1.8-7.7) Lymphocytes # (Auto) 1.5 x10^3/uL (1.0-4.8) 2.2 x10^3/uL (1.0-4.8) Monocytes # (Auto) 1.0 x10^3/uL (0.0-1.1) 0.8 x10^3/uL (0.0-1.1) Eosinophils # (Auto) 0.0 x10^3/uL (0.0-0.7) 0.1 x10^3/uL (0.0-0.7) Basophils # (Auto) 0.0 x10^3/uL (0.0-0.2) 0.0 x10^3/uL (0.0-0.2) Sodium Level 134 mmol/L (136-145) 138 mmol/L (136-145) Potassium Level 4.0 mmol/L (3.5-5.1) 3.9 mmol/L (3.5-5.1) Chloride Level 99 mmol/L (98-107) 102 mmol/L (98-107) Carbon Dioxide Level 27 mmol/L (21-32) 28 mmol/L (21-32) Anion Gap 8 (6-14) 8 (6-14) Blood Urea Nitrogen 7 mg/dL (8-26) 7 mg/dL (8-26) Creatinine 0.7 mg/dL (0.7-1.3) 0.8 mg/dL (0.7-1.3) Estimated GFR (Cockcroft-Gault) 152.7 130.9 Glucose Level 103 mg/dL (70-99) 107 mg/dL (70-99) Calcium Level 9.0 mg/dL (8.5-10.1) 9.1 mg/dL (8.5-10.1) 25-Hydroxy Vitamin D Total 6.7 ng/mL (30-100) Laboratory Tests Test 11/28/18 03:25 White Blood Count 8.1 x10^3/uL (4.0-11.0) Red Blood Count 3.81 x10^6/uL (4.30-5.70) Hemoglobin 11.9 g/dL (13.0-17.5) Hematocrit 35.6 % (39.0-53.0) Mean Corpuscular Volume 93 fL (79-100) Mean Corpuscular Hemoglobin 31 pg (25-35) Mean Corpuscular Hemoglobin Concent 34 g/dL (31-37) Red Cell Distribution Width 13.8 % (11.5-14.5) Platelet Count 209 x10^3/uL (140-400) Neutrophils (%) (Auto) 63 % (31-73) Lymphocytes (%) (Auto) 27 % (24-48) Monocytes (%) (Auto) 9 % (0-9) Eosinophils (%) (Auto) 1 % (0-3) Basophils (%) (Auto) 0 % (0-3) Neutrophils # (Auto) 5.1 x10^3uL (1.8-7.7) Lymphocytes # (Auto) 2.2 x10^3/uL (1.0-4.8) Monocytes # (Auto) 0.8 x10^3/uL (0.0-1.1) Eosinophils # (Auto) 0.1 x10^3/uL (0.0-0.7) Basophils # (Auto) 0.0 x10^3/uL (0.0-0.2) Sodium Level 138 mmol/L (136-145) Potassium Level 3.9 mmol/L (3.5-5.1) Chloride Level 102 mmol/L (98-107) Carbon Dioxide Level 28 mmol/L (21-32) Anion Gap 8 (6-14) Blood Urea Nitrogen 7 mg/dL (8-26) Creatinine 0.8 mg/dL (0.7-1.3) Estimated GFR (Cockcroft-Gault) 130.9 Glucose Level 107 mg/dL (70-99) Calcium Level 9.1 mg/dL (8.5-10.1) Medications Current Medications Acetaminophen/ Hydrocodone Bitart (Lortab 5/325) 2 tab 1X ONCE PO Last administered on 11/25/18at 17:35; Start 11/25/18 at 17:30; Stop 11/25/18 at 17:31; Status DC Naproxen (Naprosyn) 500 mg 1X STAT PO Last administered on 11/25/18at 17:34; Start 11/25/18 at 17:13; Stop 11/25/18 at 17:15; Status DC Morphine Sulfate (Morphine Sulfate) 5 mg 1X ONCE IV Last administered on 11/25/18at 18:31; Start 11/25/18 at 18:45; Stop 11/25/18 at 18:46; Status DC Ondansetron HCl (Zofran) 4 mg 1X ONCE IV Last administered on 11/25/18at 18:30; Start 11/25/18 at 18:45; Stop 11/25/18 at 18:46; Status DC Ondansetron HCl (Zofran) 4 mg PRN Q8HRS PRN IV NAUSEA/VOMITING; Start 11/25/18 at 19:15; Stop 11/26/18 at 19:14; Status DC Morphine Sulfate (Morphine Sulfate) 4 mg PRN Q2HR PRN IV PAIN Last administered on 11/26/18at 11:19; Start 11/25/18 at 19:15; Stop 11/26/18 at 19:14; Status DC Ondansetron HCl (Zofran) 4 mg PRN Q6HRS PRN IV NAUSEA/VOMITING; Start 11/26/18 at 08:30; Stop 11/26/18 at 21:00; Status DC Fentanyl Citrate (Fentanyl 2ml Vial) 25 mcg PRN Q5MIN PRN IV MILD PAIN; Start 11/26/18 at 08:30; Stop 11/26/18 at 21:00; Status DC Fentanyl Citrate (Fentanyl 2ml Vial) 50 mcg PRN Q5MIN PRN IV MODERATE TO SEVERE PAIN Last administered on 11/26/18at 19:06; Start 11/26/18 at 08:30; Stop 11/26/18 at 21:00; Status DC Morphine Sulfate (Morphine Sulfate) 1 mg PRN Q10MIN PRN IV SEVERE PAIN; Start 11/26/18 at 08:30; Stop 11/26/18 at 21:00; Status DC Ringer's Solution 1,000 ml @ 30 mls/hr Q24H IV Last administered on 11/26/18at 14:30; Start 11/26/18 at 08:22; Stop 11/26/18 at 20:21; Status DC Hydromorphone HCl (Dilaudid) 0.5 mg PRN Q10MIN PRN IV SEV PAIN, Second choice; Start 11/26/18 at 08:30; Stop 11/26/18 at 21:00; Status DC Prochlorperazine Edisylate (Compazine) 5 mg PACU PRN PRN IV NAUSEA, MRX1; Start 11/26/18 at 08:30; Stop 11/26/18 at 21:00; Status DC Ondansetron HCl (Zofran) 4 mg STK-MED ONCE .ROUTE ; Start 11/26/18 at 13:02; Stop 11/26/18 at 13:03; Status DC Propofol 20 ml @ As Directed STK-MED ONCE IV ; Start 11/26/18 at 13:02; Stop 11/26/18 at 13:03; Status DC Lidocaine HCl (Lidocaine Pf 2% Vial) 5 ml STK-MED ONCE .ROUTE ; Start 11/26/18 at 13:02; Stop 11/26/18 at 13:03; Status DC Midazolam HCl (Versed) 2 mg STK-MED ONCE .ROUTE ; Start 11/26/18 at 13:02; Stop 11/26/18 at 13:03; Status DC Fentanyl Citrate (Fentanyl 2ml Vial) 100 mcg STK-MED ONCE .ROUTE ; Start 11/26/18 at 13:02; Stop 11/26/18 at 13:03; Status DC Dexamethasone Sodium Phosphate (Decadron) 4 mg STK-MED ONCE .ROUTE ; Start 11/26/18 at 13:03; Stop 11/26/18 at 13:04; Status DC Rocuronium [place] (Zemuron) 50 mg STK-MED ONCE .ROUTE ; Start 11/26/18 at 13:03; Stop 11/26/18 at 13:04; Status DC Cefazolin Sodium/ Dextrose 50 ml @ 100 mls/hr 1X PREOP PRN IV comm Last administered on 11/26/18at 15:55; Start 11/26/18 at 14:00; Stop 11/26/18 at 19:40; Status DC Famotidine (Pepcid Vial) 20 mg STK-MED ONCE .ROUTE ; Start 11/26/18 at 15:59; Stop 11/26/18 at 16:00; Status DC Bupivacaine HCl/ Epinephrine Bitart (Sensorcaine-Epi 0.25%-1:684208 Mpf) 30 ml STK-MED ONCE .ROUTE Last administered on 11/26/18at 16:31; Start 11/26/18 at 15:28; Stop 11/26/18 at 16:28; Status DC Sevoflurane (Ultane) 90 ml STK-MED ONCE IH ; Start 11/26/18 at 16:38; Stop 11/26/18 at 16:39; Status DC Cefazolin Sodium (Ancef) 1 gm STK-MED ONCE .ROUTE ; Start 11/26/18 at 16:38; Stop 11/26/18 at 16:39; Status DC Phenylephrine HCl (PHENYLEPHRINE in 0.9% NACL PF) 1 mg STK-MED ONCE IV ; Start 11/26/18 at 16:38; Stop 11/26/18 at 16:39; Status DC Cefazolin Sodium 50 ml @ 100 mls/hr 1X ONCE IV Last administered on 11/26/18at 17:13; Start 11/26/18 at 17:15; Stop 11/26/18 at 17:44; Status DC Bupivacaine HCl/ Epinephrine Bitart (Sensorcaine-Epi 0.25%-1:[id number] Mpf) 30 ml STK-MED ONCE .ROUTE Last administered on 11/26/18at 16:31; Start 11/26/18 at 17:04; Stop 11/26/18 at 18:04; Status DC Cefazolin Sodium 50 ml @ 100 mls/hr 1X ONCE IV ; Start 11/26/18 at 17:00; Stop 11/26/18 at 17:29; Status UNV Cefazolin Sodium (Ancef) 1 gm 1X ONCE IVP ; Start 11/26/18 at 20:00; Stop 11/26/18 at 20:01; Status DC Acetaminophen/ Hydrocodone Bitart (Lortab 5/325) 2 tab PRN Q4HRS PRN PO PAIN; Start 11/26/18 at 20:00; Status Cancel Morphine Sulfate (Morphine Sulfate) 4 mg PRN Q2HR PRN IV PAIN Last administered on 11/26/18at 20:07; Start 11/26/18 at 20:00; Stop 11/26/18 at 20:29; Status DC Ondansetron HCl (Zofran) 4 mg PRN Q8HRS PRN IV NAUSEA/VOMITING; Start 11/26/18 at 20:00; Status Cancel Oxycodone HCl (Roxicodone) 5 mg PRN Q3HRS PRN PO PAIN; Start 11/26/18 at 20:15 Morphine Sulfate (Morphine Sulfate) 2 mg PRN Q1HR PRN IV PAIN; Start 11/26/18 at 20:15 Fentanyl Citrate (Fentanyl 2ml Vial) 25 mcg PRN Q1HR PRN IV PAIN; Start 11/26/18 at 20:15 Multivitamins (Thera M Plus) 1 tab DAILY PO Last administered on 11/28/18at 08:57; Start 11/27/18 at 09:00 Senna/Docusate Sodium (Senna Plus) 1 tab DAILY PO Last administered on 11/28/18at 08:57; Start 11/27/18 at 09:00 Polyethylene Glycol (miraLAX PACKET) 17 gm PRN DAILY PRN PO CONSTIPATION; Start 11/26/18 at 20:15 Vitamin D (Vitamin D3) 1,000 unit DAILY PO Last administered on 11/28/18at 08:57; Start 11/27/18 at 09:00 Sodium Chloride 1,000 ml @ 75 mls/hr [id number] IV Last administered on 11/27/18at 11:04; Start 11/26/18 at 21:00 Ondansetron HCl (Zofran) 4 mg PRN Q4HRS PRN IV NAUSEA/VOMITING; Start 11/26/18 at 20:15 Magnesium Hydroxide (Milk Of Magnesia) 2,400 mg 1X PRN PRN PO CONSTIPATION; Start 11/27/18 at 06:00; Stop 11/28/18 at 06:00; Status DC Bisacodyl (Dulcolax Supp) 10 mg 1X PRN PRN VT CONSTIPATION; Start 11/27/18 at 16:00; Stop 11/28/18 at 15:59 Acetaminophen/ Hydrocodone Bitart (Lortab 7.5/325) 1 tab PRN Q4HRS PRN PO PAIN; Start 11/26/18 at 20:15 Morphine Sulfate (Morphine Sulfate) 4 mg PRN Q2HR PRN IV PAIN Last administered on 11/27/18at 06:04; Start 11/26/18 at 20:15 Acetaminophen/ Hydrocodone Bitart (Lortab 7.5/325) 2 tab PRN Q4HRS PRN PO PAIN Last administered on 11/28/18at 05:15; Start 11/26/18 at 20:15 Dextrose (Dextrose 50%-Water Syringe) 12.5 gm PRN Q15MIN PRN IV SEE COMMENTS; Start 11/26/18 at 20:15 Cefazolin Sodium/ Dextrose 50 ml @ 100 mls/hr Q6H IV Last administered on 11/27/18at 11:04; Start 11/26/18 at 22:00; Stop 11/27/18 at 10:29; Status DC Aspirin (Ecotrin) 325 mg BID PO Last administered on 11/28/18at 08:57; Start 11/26/18 at 21:00 Vitals/I & O Vital Sign - Last 24 Hours 11/27/18 11/27/18 11/27/18 11/27/18 15:00 18:45 19:34 20:00 Temp 98.6 98.7 98.6 98.7 Pulse 93 94 Resp 16 18 B/P (MAP) 141/70 (93) 134/68 (90) Pulse Ox 97 98 O2 Delivery Room Air Room Air Room Air Room Air 11/27/18 11/27/18 11/28/18 11/28/18 23:06 23:30 00:06 03:00 Temp 97.0 98.6 97.0 98.6 Pulse 97 96 Resp 18 18 B/P (MAP) 132/71 (91) 146/72 (96) Pulse Ox 99 98 O2 Delivery Room Air Room Air Room Air Room Air 11/28/18 11/28/18 11/28/18 11/28/18 05:15 07:00 07:25 11:00 Temp 98.2 98.0 98.2 98.0 Pulse 91 98 Resp 16 16 B/P (MAP) 124/68 (86) 136/80 (98) Pulse Ox 95 98 O2 Delivery Room Air Room Air Room Air Room Air Intake and Output 11/27/18 11/27/18 11/28/18 15:00 23:00 07:00 Output Total 300 ml 800 ml 400 ml Balance -300 ml -800 ml -400 ml JAKUB GRIFFIN MD Nov 28, 2018 12:09
--- NOTE | 2018-11-28 12:12 | PDOC3 ---
Discharge Summary Date of Admission: Nov 25, 2018 Date of Discharge: Nov 28, 2018 Follow-Up: 1-2 days Admitting Diagnosis comment: discharge dx Chief Complaint Right intertrochanteric fracture Left wrist fracture WILL NEED WALKER FOR HOME ON D/C History of Present Illness History of Present Illness Patient was resting comfortably in bed today. He has no complaints. Surgery 11/26 with ortho. d/c home today with home health Vitals Vitals Vital Signs Date Time Temp Pulse Resp B/P (MAP) Pulse Ox O2 Delivery O2 Flow Rate FiO2 11/28/18 11:00 98.0 98 16 136/80 (98) 98 Room Air 98.0 Physical Exam General: Alert, Oriented X3, Cooperative, No acute distress Heart: Regular rate, Normal S1, Normal S2 Lungs: Clear (No wheezes, rales, or rhonchi) Abdomen: Normal bowel sounds, Soft, No hepatosplenomegaly Extremities: No clubbing, No cyanosis, No edema, Other (the left wrist has tenderness. There is a dorsal wrist transverse scar from a traumatic skin injury. There is circumferential swelling and limited motion. Light touch sensation and motor function showed no evidence of specific radial nerve, median nerve, or ulnar nerve injury, and he had a flicker of motion for all. The most difficulty was with wrist extension and finger extension. Capillary refill is normal. The gross alignment shows swelling but no severe deformity. Tender at the distal radius as expected with a fracture. The skin is intact over the left distal radius fracture. The right hip has tenderness to palpation. The skin is intact over the fracture. 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.) Skin: No breakdown, No significant lesion Labs FINAL DIAGNOSIS Problems Medical Problems: (1) Fall down steps Status: Acute (2) Fracture of ulnar styloid Status: Acute Brief Hospital Course Mr. Galo is a 38 old [sex] who presented with [hip and wrist fx ] CONDITION AT DISCHARGE: Improved Discharge Medications Current Medications Acetaminophen/ Hydrocodone Bitart (Lortab 5/325) 2 tab 1X ONCE PO Last administered on 11/25/18at 17:35; Start 11/25/18 at 17:30; Stop 11/25/18 at 17:31; Status DC Naproxen (Naprosyn) 500 mg 1X STAT PO Last administered on 11/25/18at 17:34; Start 11/25/18 at 17:13; Stop 11/25/18 at 17:15; Status DC Morphine Sulfate (Morphine Sulfate) 5 mg 1X ONCE IV Last administered on 11/25/18at 18:31; Start 11/25/18 at 18:45; Stop 11/25/18 at 18:46; Status DC Ondansetron HCl (Zofran) 4 mg 1X ONCE IV Last administered on 11/25/18at 18:30; Start 11/25/18 at 18:45; Stop 11/25/18 at 18:46; Status DC Ondansetron HCl (Zofran) 4 mg PRN Q8HRS PRN IV NAUSEA/VOMITING; Start 11/25/18 at 19:15; Stop 11/26/18 at 19:14; Status DC Morphine Sulfate (Morphine Sulfate) 4 mg PRN Q2HR PRN IV PAIN Last administered on 11/26/18at 11:19; Start 11/25/18 at 19:15; Stop 11/26/18 at 19:14; Status DC Ondansetron HCl (Zofran) 4 mg PRN Q6HRS PRN IV NAUSEA/VOMITING; Start 11/26/18 at 08:30; Stop 11/26/18 at 21:00; Status DC Fentanyl Citrate (Fentanyl 2ml Vial) 25 mcg PRN Q5MIN PRN IV MILD PAIN; Start 11/26/18 at 08:30; Stop 11/26/18 at 21:00; Status DC Fentanyl Citrate (Fentanyl 2ml Vial) 50 mcg PRN Q5MIN PRN IV MODERATE TO SEVERE PAIN Last administered on 11/26/18at 19:06; Start 11/26/18 at 08:30; Stop 11/26/18 at 21:00; Status DC Morphine Sulfate (Morphine Sulfate) 1 mg PRN Q10MIN PRN IV SEVERE PAIN; Start 11/26/18 at 08:30; Stop 11/26/18 at 21:00; Status DC Ringer's Solution 1,000 ml @ 30 mls/hr Q24H IV Last administered on 11/26/18at 14:30; Start 11/26/18 at 08:22; Stop 11/26/18 at 20:21; Status DC Hydromorphone HCl (Dilaudid) 0.5 mg PRN Q10MIN PRN IV SEV PAIN, Second choice; Start 11/26/18 at 08:30; Stop 11/26/18 at 21:00; Status DC Prochlorperazine Edisylate (Compazine) 5 mg PACU PRN PRN IV NAUSEA, MRX1; Start 11/26/18 at 08:30; Stop 11/26/18 at 21:00; Status DC Ondansetron HCl (Zofran) 4 mg STK-MED ONCE .ROUTE ; Start 11/26/18 at 13:02; Stop 11/26/18 at 13:03; Status DC Propofol 20 ml @ As Directed STK-MED ONCE IV ; Start 11/26/18 at 13:02; Stop 11/26/18 at 13:03; Status DC Lidocaine HCl (Lidocaine Pf 2% Vial) 5 ml STK-MED ONCE .ROUTE ; Start 11/26/18 at 13:02; Stop 11/26/18 at 13:03; Status DC Midazolam HCl (Versed) 2 mg STK-MED ONCE .ROUTE ; Start 11/26/18 at 13:02; Stop 11/26/18 at 13:03; Status DC Fentanyl Citrate (Fentanyl 2ml Vial) 100 mcg STK-MED ONCE .ROUTE ; Start 11/26/18 at 13:02; Stop 11/26/18 at 13:03; Status DC Dexamethasone Sodium Phosphate (Decadron) 4 mg STK-MED ONCE .ROUTE ; Start 11/26/18 at 13:03; Stop 11/26/18 at 13:04; Status DC Rocuronium Caspar (Zemuron) 50 mg STK-MED ONCE .ROUTE ; Start 11/26/18 at 13:03; Stop 11/26/18 at 13:04; Status DC Cefazolin Sodium/ Dextrose 50 ml @ 100 mls/hr 1X PREOP PRN IV comm Last administered on 11/26/18at 15:55; Start 11/26/18 at 14:00; Stop 11/26/18 at 19:40; Status DC Famotidine (Pepcid Vial) 20 mg STK-MED ONCE .ROUTE ; Start 11/26/18 at 15:59; Stop 11/26/18 at 16:00; Status DC Bupivacaine HCl/ Epinephrine Bitart (Sensorcaine-Epi 0.25%-1:755429 Mpf) 30 ml STK-MED ONCE .ROUTE Last administered on 11/26/18at 16:31; Start 11/26/18 at 15:28; Stop 11/26/18 at 16:28; Status DC Sevoflurane (Ultane) 90 ml STK-MED ONCE IH ; Start 11/26/18 at 16:38; Stop 11/26/18 at 16:39; Status DC Cefazolin Sodium (Ancef) 1 gm STK-MED ONCE .ROUTE ; Start 11/26/18 at 16:38; Stop 11/26/18 at 16:39; Status DC Phenylephrine HCl (PHENYLEPHRINE in 0.9% NACL PF) 1 mg STK-MED ONCE IV ; Start 11/26/18 at 16:38; Stop 11/26/18 at 16:39; Status DC Cefazolin Sodium 50 ml @ 100 mls/hr 1X ONCE IV Last administered on 11/26/18at 17:13; Start 11/26/18 at 17:15; Stop 11/26/18 at 17:44; Status DC Bupivacaine HCl/ Epinephrine Bitart (Sensorcaine-Epi 0.25%-1:[id number] Mpf) 30 ml STK-MED ONCE .ROUTE Last administered on 11/26/18at 16:31; Start 11/26/18 at 17:04; Stop 11/26/18 at 18:04; Status DC Cefazolin Sodium 50 ml @ 100 mls/hr 1X ONCE IV ; Start 11/26/18 at 17:00; Stop 11/26/18 at 17:29; Status UNV Cefazolin Sodium (Ancef) 1 gm 1X ONCE IVP ; Start 11/26/18 at 20:00; Stop 11/26/18 at 20:01; Status DC Acetaminophen/ Hydrocodone Bitart (Lortab 5/325) 2 tab PRN Q4HRS PRN PO PAIN; Start 11/26/18 at 20:00; Status Cancel Morphine Sulfate (Morphine Sulfate) 4 mg PRN Q2HR PRN IV PAIN Last administered on 11/26/18at 20:07; Start 11/26/18 at 20:00; Stop 11/26/18 at 20:29; Status DC Ondansetron HCl (Zofran) 4 mg PRN Q8HRS PRN IV NAUSEA/VOMITING; Start 11/26/18 at 20:00; Status Cancel Oxycodone HCl (Roxicodone) 5 mg PRN Q3HRS PRN PO PAIN; Start 11/26/18 at 20:15 Morphine Sulfate (Morphine Sulfate) 2 mg PRN Q1HR PRN IV PAIN; Start 11/26/18 at 20:15 Fentanyl Citrate (Fentanyl 2ml Vial) 25 mcg PRN Q1HR PRN IV PAIN; Start 11/26/18 at 20:15 Multivitamins (Thera M Plus) 1 tab DAILY PO Last administered on 11/28/18at 08:57; Start 11/27/18 at 09:00 Senna/Docusate Sodium (Senna Plus) 1 tab DAILY PO Last administered on 11/28/18at 08:57; Start 11/27/18 at 09:00 Polyethylene Glycol (miraLAX PACKET) 17 gm PRN DAILY PRN PO CONSTIPATION; Start 11/26/18 at 20:15 Vitamin D (Vitamin D3) 1,000 unit DAILY PO Last administered on 11/28/18at 08:57; Start 11/27/18 at 09:00 Sodium Chloride 1,000 ml @ 75 mls/hr [id number] IV Last administered on 11/27/18at 11:04; Start 11/26/18 at 21:00 Ondansetron HCl (Zofran) 4 mg PRN Q4HRS PRN IV NAUSEA/VOMITING; Start 11/26/18 at 20:15 Magnesium Hydroxide (Milk Of Magnesia) 2,400 mg 1X PRN PRN PO CONSTIPATION; Start 11/27/18 at 06:00; Stop 11/28/18 at 06:00; Status DC Bisacodyl (Dulcolax Supp) 10 mg 1X PRN PRN IN CONSTIPATION; Start 11/27/18 at 16:00; Stop 11/28/18 at 15:59 Acetaminophen/ Hydrocodone Bitart (Lortab 7.5/325) 1 tab PRN Q4HRS PRN PO PAIN; Start 11/26/18 at 20:15 Morphine Sulfate (Morphine Sulfate) 4 mg PRN Q2HR PRN IV PAIN Last administered on 11/27/18at 06:04; Start 11/26/18 at 20:15 Acetaminophen/ Hydrocodone Bitart (Lortab 7.5/325) 2 tab PRN Q4HRS PRN PO PAIN Last administered on 11/28/18at 05:15; Start 11/26/18 at 20:15 Dextrose (Dextrose 50%-Water Syringe) 12.5 gm PRN Q15MIN PRN IV SEE COMMENTS; Start 11/26/18 at 20:15 Cefazolin Sodium/ Dextrose 50 ml @ 100 mls/hr Q6H IV Last administered on 11/27/18at 11:04; Start 11/26/18 at 22:00; Stop 11/27/18 at 10:29; Status DC Aspirin (Ecotrin) 325 mg BID PO Last administered on 11/28/18at 08:57; Start 11/26/18 at 21:00 Vital Signs Vital Signs Date Time Temp Pulse Resp B/P (MAP) Pulse Ox O2 Delivery O2 Flow Rate FiO2 11/28/18 11:00 98.0 98 16 136/80 (98) 98 Room Air 98.0 Labs Laboratory Tests Test 11/27/18 05:50 11/28/18 03:25 White Blood Count 11.9 x10^3/uL (4.0-11.0) 8.1 x10^3/uL (4.0-11.0) Red Blood Count 4.06 x10^6/uL (4.30-5.70) 3.81 x10^6/uL (4.30-5.70) Hemoglobin 12.5 g/dL (13.0-17.5) 11.9 g/dL (13.0-17.5) Hematocrit 38.0 % (39.0-53.0) 35.6 % (39.0-53.0) Mean Corpuscular Volume 94 fL (79-100) 93 fL (79-100) Mean Corpuscular Hemoglobin 31 pg (25-35) 31 pg (25-35) Mean Corpuscular Hemoglobin Concent 33 g/dL (31-37) 34 g/dL (31-37) Red Cell Distribution Width 14.1 % (11.5-14.5) 13.8 % (11.5-14.5) Platelet Count 205 x10^3/uL (140-400) 209 x10^3/uL (140-400) Neutrophils (%) (Auto) 79 % (31-73) 63 % (31-73) Lymphocytes (%) (Auto) 13 % (24-48) 27 % (24-48) Monocytes (%) (Auto) 9 % (0-9) 9 % (0-9) Eosinophils (%) (Auto) 0 % (0-3) 1 % (0-3) Basophils (%) (Auto) 0 % (0-3) 0 % (0-3) Neutrophils # (Auto) 9.4 x10^3uL (1.8-7.7) 5.1 x10^3uL (1.8-7.7) Lymphocytes # (Auto) 1.5 x10^3/uL (1.0-4.8) 2.2 x10^3/uL (1.0-4.8) Monocytes # (Auto) 1.0 x10^3/uL (0.0-1.1) 0.8 x10^3/uL (0.0-1.1) Eosinophils # (Auto) 0.0 x10^3/uL (0.0-0.7) 0.1 x10^3/uL (0.0-0.7) Basophils # (Auto) 0.0 x10^3/uL (0.0-0.2) 0.0 x10^3/uL (0.0-0.2) Sodium Level 134 mmol/L (136-145) 138 mmol/L (136-145) Potassium Level 4.0 mmol/L (3.5-5.1) 3.9 mmol/L (3.5-5.1) Chloride Level 99 mmol/L (98-107) 102 mmol/L (98-107) Carbon Dioxide Level 27 mmol/L (21-32) 28 mmol/L (21-32) Anion Gap 8 (6-14) 8 (6-14) Blood Urea Nitrogen 7 mg/dL (8-26) 7 mg/dL (8-26) Creatinine 0.7 mg/dL (0.7-1.3) 0.8 mg/dL (0.7-1.3) Estimated GFR (Cockcroft-Gault) 152.7 130.9 Glucose Level 103 mg/dL (70-99) 107 mg/dL (70-99) Calcium Level 9.0 mg/dL (8.5-10.1) 9.1 mg/dL (8.5-10.1) 25-Hydroxy Vitamin D Total 6.7 ng/mL (30-100) Laboratory Tests Test 11/28/18 03:25 White Blood Count 8.1 x10^3/uL (4.0-11.0) Red Blood Count 3.81 x10^6/uL (4.30-5.70) Hemoglobin 11.9 g/dL (13.0-17.5) Hematocrit 35.6 % (39.0-53.0) Mean Corpuscular Volume 93 fL (79-100) Mean Corpuscular Hemoglobin 31 pg (25-35) Mean Corpuscular Hemoglobin Concent 34 g/dL (31-37) Red Cell Distribution Width 13.8 % (11.5-14.5) Platelet Count 209 x10^3/uL (140-400) Neutrophils (%) (Auto) 63 % (31-73) Lymphocytes (%) (Auto) 27 % (24-48) Monocytes (%) (Auto) 9 % (0-9) Eosinophils (%) (Auto) 1 % (0-3) Basophils (%) (Auto) 0 % (0-3) Neutrophils # (Auto) 5.1 x10^3uL (1.8-7.7) Lymphocytes # (Auto) 2.2 x10^3/uL (1.0-4.8) Monocytes # (Auto) 0.8 x10^3/uL (0.0-1.1) Eosinophils # (Auto) 0.1 x10^3/uL (0.0-0.7) Basophils # (Auto) 0.0 x10^3/uL (0.0-0.2) Sodium Level 138 mmol/L (136-145) Potassium Level 3.9 mmol/L (3.5-5.1) Chloride Level 102 mmol/L (98-107) Carbon Dioxide Level 28 mmol/L (21-32) Anion Gap 8 (6-14) Blood Urea Nitrogen 7 mg/dL (8-26) Creatinine 0.8 mg/dL (0.7-1.3) Estimated GFR (Cockcroft-Gault) 130.9 Glucose Level 107 mg/dL (70-99) Calcium Level 9.1 mg/dL (8.5-10.1) Allergies Allergies Coded Allergies Type Severity Reaction Last Updated Verified codeine Allergy Intermediate Itching 11/26/18 Yes Disposition/Orders: D/C to Home w/ HH Patient Instructions d/c planning time 36 min JAKUB GRIFFIN MD Nov 28, 2018 12:12
[2018-11-28] MEDS ORDERED: CHOL10002 PO (12:16)
[2018-11-28] MEDS ORDERED: MULT1TAB90 PO (12:16)
[2018-11-28] MEDS ORDERED: BISACODYL PR (12:16)
[2018-11-28] MEDS ORDERED: ASPI325T11 PO (12:16)
[2018-11-28] MEDS ORDERED: POLY17PO28 PO (12:16)
[2018-11-28] MEDS ORDERED: HYDR-2765 PO (12:16)
--- NOTE | 2018-11-28 12:17 | SNU/HH DC ---
DISCHARGE WITH HOME HEALTH DISCHARGE INFORMATION: Final Diagnosis: Problems Medical Problems: (1) Fall down steps Status: Acute (2) Fracture of ulnar styloid Status: Acute Condition on Discharge: Stable CODE STATUS: Code Status: Full HOME HEALTH: Face to Face: I certify this patient is under my care and that I, or a nurse practitioner or physician's assistant general manager working with me, had a face to face encounter that meets the physician face to face encounter requirements with this patient on []. Medical Complications: DJD, Falls RN For Eval/Treatment: Yes Physical Therapy For: Evalulation/Treatment Occupational Therapy For: Evaluation/Treatment Speech Language Pathology For: Evaluation/Treatment Home Health Aide For: Self-care GEARMAN For: Community Resources Pt Meets Homebound Status: Poor coordination w/ amb., Unsteady balance w/ amb, POST DISCHARGE ORDERS: Activity Instructions for Disc: Activity as tolerated DIET AFTER DISCHARGE: Cardiac CHECKS AFTER DISCHARGE: Checks after discharge: Check blood press - daily CERTIFICATION STATEMENT: Certification Statement: Certification Statement: Based on the above finding, I certify that this patient is confined to the home and needs intermittent custodial care, physical t herapy and/or speech therapy, or continues to need occupational therapy.~ This patient is under my care, and I have initiated the establishment of the plan of care.~ This patient will be followed by myself or a community physician who will periodically review the plan of care. Home Meds Active Scripts Multivits,Ca,Minerals/Iron/Fa (THERA-M TABLET) 1 Each Tablet, 1 TAB PO DAILY for supplement for 30 Days, #30 TAB Prov:JAKUB GRIFFIN MD 11/28/18 Cholecalciferol (Vitamin D3) (VITAMIN D) 1,000 Unit Tablet, 1000 UNIT PO DAILY for bone health for 30 Days, #30 TAB Prov:JAKUB GRIFFIN MD 11/28/18 Polyethylene Glycol 3350 (POLYETHYLENE GLYCOL 3350) 17 Gm Powd.pack, 17 GM PO PRN DAILY PRN for CONSTIPATION for 30 Days, #30 PKT Prov:JAKUB GRIFFIN MD 11/28/18 [Bisacodyl Supp] 10 MG SUPP.RECT No Conflict Check, 10 MG MN 1X PRN PRN for CONSTIPATION for 10 Days, #10 SUPP.RECT Prov:JAKUB GRIFFIN MD 11/28/18 Hydrocodone Bit/Acetaminophen (HYDROCODONE-APAP 7.5-325 ) 1 Tab Tablet, 1 TAB PO PRN Q4HRS PRN for PAIN for 14 Days, #60 TAB Prov:JAKUB GRIFFIN MD 11/28/18 Aspirin (ASPIRIN EC) 325 Mg Tablet.dr, 325 MG PO BID for heart health for 30 Days, #60 TAB.SR Prov:JAKUB GRIFFIN MD 11/28/18 JAKUB GRIFFIN MD Nov 28, 2018 12:17
[2018-11-28] MEDS: IV 1/2 NORMAL SALINE 1,000 ML IV SCH (13:00)
--- NOTE | 2018-11-28 13:06 | NUR ---
SW following. Discussed with RN, [facility] is going to try to deliver pt's walker to his room before noon today. Sw discussed possible home health with Jem Neville RN. Kelin to meet with pt to assess need for home health. Possible discharge today. SW will continue to follow.
--- NOTE | 2018-11-28 13:48 | NUR ---
Dr. Shane notified of pending d/c. Also notified of pt's c/o L wrist splint feeling uncomfortable, orders received.
--- NOTE | 2018-11-28 14:13 | NUR ---
L wrist splint loosened and adjusted, pt states instant relief. L hip incision cleaned with chloraprep, Aquacel Ag x 3 placed.
[2018-11-28 15:00] VITALS: BP 134/81
--- NOTE | 2018-11-28 17:13 | NUR ---
Pt. discharged to home with Rx, verbalized understanding of discharge instructions. L tatiana Robledo CDI.
== END 2018-11-28 17:30 | disposition home health service (06) | DRG 480 ==
LOC: ER 16:53 → 4 NORTH 18:35
PROVIDERS: ADMIT Internal Medicine; ATTEND Internal Medicine
PROC: 0QS606Z Reposition Right Upper Femur with Intramedullary Internal Fixation Device, Open Approach (ICD-10-PCS; principal; 2018-11-26 12:00)
PROC: 0PSJ04Z Reposition Left Radius with Internal Fixation Device, Open Approach (ICD-10-PCS; 2018-11-26 12:00)
DX: S52.572A Other intraarticular fracture of lower end of left radius, initial encounter for closed fracture (principal); S72.144A Nondisplaced intertrochanteric fracture of right femur, initial encounter for closed fracture; S52.612A Displaced fracture of left ulna styloid process, initial encounter for closed fracture; F41.9 Anxiety disorder, unspecified; F17.210 Nicotine dependence, cigarettes, uncomplicated; W10.9XXA Fall (on) (from) unspecified stairs and steps, initial encounter; Y93.01 Activity, walking, marching and hiking; Y92.89 Other specified places as the place of occurrence of the external cause; Y99.8 Other external cause status; Z89.611 Acquired absence of right leg above knee; Z83.3 Family history of diabetes mellitus; Z93.3 Colostomy status
CPT/HCPCS: 36415; 73110; 73502; 76000; 80048; 80053; 82306; 85025; 85610; 85730; 96374; A7015; C1713; C1887; J0690; J0696; J1100; J2001; J2250; J2270; J2370; J2405; J2704; J3010; J3490; J7120; 97116; 97530; 97535; 99285-25

== ENCOUNTER 2020-11-19 17:47 | Emergency (ER) | payer BC ==
[~2020-11-19] VITALS: Ht 177.8 cm; Wt 100.0 kg
[~2020-11-19 17:47] MED LIST: ASPI325T11 PO; BISACODYL PR; CHOL10002 PO; HYDR-2765 PO; MULT1TAB92 PO; POLY17PO52 PO
[2020-11-19 20:00] VITALS: BP 143/99
--- NOTE | 2020-11-19 20:26 | PHYS DOC ---
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 He has another quarter sized abscess that is hard and slightly raised to the right base of the penis on the pubis area. No cellulitis is seen. He states it hurts from the rubbing friction from his prosthetic on that side. Patient states he does not have a primary care physician. He denies fever or chills or body aches. He denies any drainage. He states he gets these often and they come and go. Currently rating his pain burning 7 out of 10. [] (BRAYDEN SILVER NETWORK SYSTEMS ADMINISTRATOR) Review of Systems: Review of Systems: Constitutional: Denies fever or chills. [] Eyes: Denies change in visual acuity. [] HENT: Denies nasal congestion or sore throat. [] Respiratory: Denies cough or shortness of breath. [] Cardiovascular: Denies chest pain or edema. [] GI: Denies abdominal pain, nausea, vomiting, bloody stools or diarrhea. [] : Denies dysuria. [] Musculoskeletal: Denies back pain or joint pain. [] Integument: Denies rash. [] Neurologic: Denies headache, focal weakness or sensory changes. [] Endocrine: Denies polyuria or polydipsia. [] Lymphatic: Denies swollen glands. [] Psychiatric: Denies depression or anxiety. [] (BRAYDEN SILVER NETWORK SYSTEMS ADMINISTRATOR) Heart Score: C/O Chest Pain: No Risk Factors: Risk Factors: DM, Current or recent (<one month) smoker, HTN, HLP, family history of CAD, obesity. Risk Scores: Score 0 - 3: 2.5% MACE over next 6 weeks - Discharge Home Score 4 - 6: 20.3% MACE over next 6 weeks - Admit for Clinical Observation Score 7 - 10: 72.7% MACE over next 6 weeks - Early Invasive Strategies (BRAYDEN SILVER APRN) Allergies: Allergies: Allergies Coded Allergies Type Severity Reaction Last Updated Verified codeine Allergy Intermediate Itching 11/26/18 Yes (BRAYDEN SILVER APRN) Physical Exam: PE: Constitutional: Well developed, well nourished, no acute distress, non-toxic appearance. [] HENT: Normocephalic, atraumatic, bilateral external ears normal, oropharynx moist, no oral exudates, nose normal. [] Eyes: PERRLA, EOMI, conjunctiva normal, no discharge. [] Neck: Normal range of motion, no tenderness, supple, no stridor. [] Cardiovascular:Heart rate regular rhythm, no murmur [] Lungs & Thorax: Bilateral breath sounds clear to auscultation [] Abdomen: Bowel sounds normal, soft, no tenderness, no masses, no pulsatile masses. [] Skin: Warm, dry, no erythema, no rash. Right groin 2 small pea-sized hard slightly raised abscesses. 1 right bottom of penis shaft nickel sized hard abscess. [] Back: No tenderness, no CVA tenderness. [] Extremities: No tenderness, no cyanosis, no clubbing, ROM intact, no edema. [] Neurologic: Alert and oriented X 3, normal motor function, normal sensory function, no focal deficits noted. [] Psychologic: Affect normal, judgement normal, mood normal. [] (BRAYDEN SILVER APRN) EKG: EKG: [] (BRAYDEN SILVER APRN) Radiology/Procedures: Radiology/Procedures: [] (BRAYDEN SILVER APRN) Course & Med Decision Making: Course & Med Decision Making Pertinent Labs and Imaging studies reviewed. (See chart for details) See HPI. Alert and oriented x4. Ambulatory with a steady gait. Due to the abscesses being hard and only slightly raised he will be placed on antibiotics and I have educated him that he should follow-up here in the next 48 to 72 hours for wound recheck. Skin otherwise pink warm and dry. He denies any testicular pain or urinary pain. He denies abdominal pain or nausea and vomiting. No swelling to the testicles. [] (BRAYDEN SILVER APRN) Course & Med Decision Making The patient was seen and interviewed as well as examined at the bedside. The chart was reviewed. The case was discussed. Agree with the plan of care. (CAROLINE TURNER DO) Christal Disclaimer: Christal Disclaimer: This electronic medical record was generated, in whole or in part, using a voice recognition dictation system. (BRAYDEN SILVER APRN) Departure Departure Impression: Primary Impression: Abscess Disposition: HOME / SELF CARE / HOMELESS Condition: STABLE Referrals: NO PCP (PCP) Patient Instructions: Abscess, Perineal, Sitz Bath Additional Instructions: Follow-up with your primary care provider. He can return here in 48 to 72 hours for a wound recheck. Take medication as prescribed and with food. Take ibuprofen or Tylenol to help with your pain. Use warm compresses. Scripts Cephalexin (CEPHALEXIN) 500 Mg Capsule 1 CAP PO QID, #40 CAP Prov: BRAYDEN SILVER APRN 11/19/20 BRAYDEN SILVER APRN Nov 19, 2020 20:26 CAROLINE TURNER DO Nov 20, 2020 19:37
[2020-11-19] MEDS ORDERED: CEPH500C PO (20:33)
== END 2020-11-19 20:44 | disposition home or self-care (01) ==
LOC: ER 17:47
DX: L02.214 Cutaneous abscess of groin (principal); F17.200 Nicotine dependence, unspecified, uncomplicated; F10.20 Alcohol dependence, uncomplicated; Y90.9 Presence of alcohol in blood, level not specified; Z88.5 Allergy status to narcotic agent
CPT/HCPCS: 99283

== ENCOUNTER 2021-10-02 11:37 | Inpatient (IN) | payer BC ==
[~2021-10-02] VITALS: Ht 177.8 cm; Wt 98.8 kg
[2021-10-02] VITALS (15 sets, daily range): BP systolic 152–187; BP diastolic 66–104
[~2021-10-02 11:37] MED LIST changes: +CEPH500C PO
[2021-10-02] MEDS ORDERED: fentaNYL PF VIAL 100 MCG/2 ML VIAL ONE (11:54)
[2021-10-02] MEDS ORDERED: MIDAZOLAM HCL/PF 2 MG/2 ML VIAL. ONE ×2 (11:54→12:33)
[2021-10-02] MEDS ORDERED: BIVALIRUDIN 250 MG VIAL. IV ONE ×3 (11:55→12:30)
[2021-10-02] MEDS ORDERED: IODIXANOL 320 MG/ML 100 ML VIAL. ONE ×2 (11:57→12:35)
[2021-10-02] MEDS ORDERED: LIDOCAINE 1% Multi-Dose 20 ML VIAL. ONE (11:57)
[2021-10-02] MEDS ORDERED: ONDANSETRON PF 4 MG/2 ML VIAL. IVP PRN (12:00)
[2021-10-02] MEDS ORDERED: IV NORMAL SALINE 1000ML BAG 1,000 ML IV SCH (12:00)
[2021-10-02] MEDS ORDERED: 0.9 % SODIUM CHLORIDE 10 ML DISP.SYRIN. IV PRN (12:00)
[2021-10-02] MEDS ORDERED: MORPHINE SULFATE 2 MG/ML INJ. IVP PRN (12:00)
[2021-10-02] MEDS ORDERED: MORPHINE SULFATE 2 MG/ML INJ. ONE (12:01)
[2021-10-02 12:13] LABS: BASO % 0 % (0-3); EOS % 0 % (0-3); HEMATOCRIT 47.8 % (39.0-53.0); HEMOGLOBIN 16.1 g/dL (13.0-17.5); LYMPH # 1.1 x10^3/uL (1.0-4.8); LYMPH % 12 % (24-48); MEAN CORPUSCULAR HEMOGLOBIN 32 pg (25-35); MEAN CORPUSCULAR HGB CONC 34 g/dL (31-37); MEAN CORPUSCULAR VOLUME 94 fL (79-100); MONO # 0.3 x10^3/uL (0.0-1.1); MONO % 3 % (0-9); NEUT # 7.9 x10^3/uL (1.8-7.7); NEUT % 85 % (31-73); PLATELET COUNT 334 x10^3/uL (140-400); RED CELL DISTRIBUTION WIDTH 14.4 % (11.5-14.5); WHITE BLOOD COUNT 9.4 x10^3/uL (4.0-11.0)
[2021-10-02] MEDS ORDERED: HEPARIN for IV BOLUS 10,000 UNIT/10 ML VIAL. IV ONE (12:15)
[2021-10-02] MEDS ORDERED: ASPIRIN 325 MG TABLET PO ONE (12:15)
[2021-10-02] MEDS ORDERED: MORPHINE SULFATE 4 MG/ML INJ. IVP ONE (12:15)
[2021-10-02] MEDS ORDERED: MORPHINE SULFATE 2 MG/ML INJ. IVP ONE (12:15)
[2021-10-02] MEDS ORDERED: ONDANSETRON PF 4 MG/2 ML VIAL. IVP ONE (12:15)
[2021-10-02 12:22] LABS: PROTHROMBIN TIME PATIENT 12.7 SEC (11.7-14.0)
[2021-10-02 12:25] LABS: CALCIUM 9.4 mg/dL (8.5-10.1); CREATININE 0.8 mg/dL (0.7-1.3); GFR 128.9
[2021-10-02] MEDS ORDERED: IODIXANOL 320 MG/ML 100 ML VIAL. IART ONE (12:30)
[2021-10-02] MEDS ORDERED: LIDOCAINE 1% Multi-Dose 20 ML VIAL. INJ ONE (12:30)
[2021-10-02] MEDS ORDERED: MIDAZOLAM HCL/PF 2 MG/2 ML VIAL. IV ONE (12:30)
[2021-10-02] MEDS ORDERED: fentaNYL PF VIAL 100 MCG/2 ML VIAL IV ONE (12:30)
[2021-10-02 12:33] LABS: ALBUMIN 4.5 g/dL (3.4-5.0); ALBUMIN/GLOBULIN RATIO 1.2 (1.0-1.7); TOTAL BILIRUBIN 0.3 mg/dL (0.2-1.0); TOTAL PROTEIN 8.4 g/dL (6.4-8.2)
[2021-10-02] MEDS ORDERED: hydrALAZINE 20 MG/ML VIAL. ONE (12:35)
[2021-10-02] MEDS ORDERED: hydrALAZINE 20 MG/ML VIAL. IVP ONE (12:45)
[2021-10-02] MEDS ORDERED: CLOPIDOGREL BISULFATE 75 MG TABLET ONE (12:47)
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
--- NOTE | 2021-10-02 12:51 | PDOC ---
MODERATE SEDATION ASSESSMENT RISKS/ALTERNATIVES Risks/Alternatives Risks and alternatives of this type of sedation and procedure discussed with: RISK/ALTERNATIVES: Patient H & P ON CHART H & P H & P on chart and reviewed for co-morbid conditions and appropriate labs. H&P ON CHART: Yes STATUS PREG STATUS ASSESSED: N/A MEDS/ALLERGIES REVIEWED Meds/Allergies Reviewed Medications and Allergies including time and route of recently administered narcotics and sedatives. MEDS/ALLERGIES REVIEWED: Yes ASA RATING ASA RATING: II AIRWAY ASSESSMENT Airway Assessment Airway patency, oral function limitations, presence of caps, crowns, dentures, partials, and ability to extend neck assessed. AIRWAY ASSESSMENT: Yes MALLAMPATI SCORE MALLAMPATI SCORE: II PRE-SEDATION ASSESSMENT PRE-SEDATION ASSESSMENT: Yes JULIA WARREN MD Oct 02, 2021 12:51
[2021-10-02] MEDS ORDERED: CLOPIDOGREL BISULFATE 75 MG TABLET PO ONE (13:00)
--- NOTE | 2021-10-02 13:00 | PDOC1 ---
History and Physical Date of Admission Date of Admission DATE: 10/02/21 TIME: 12:59 Identification/Chief Complaint Chief Complaint Chest pain Source Source: Patient History of Present Illness History of Present Illness Mr Galo 41 yo male w/ PMHx right AKA, smoker without any previous cardiac history presented to ED c/o substernal chest pressure. It began 2 hrs prior to ED. Described as elephant on his chest. Had related SOB, headache and some nausea. WBC 9.4, Hb 16.1, platelets, 334, BUN 9, CR 0.8, NA 145, K4, glucose 163, calcium 9.4, bilirubin 0.3, AST 116, ALT 126, alkaline phosphatase 82, albumin 4.5, NT proBNP 12, high-sensitivity troponin is 225, INR 1. EKG showed inferior ST elevations prompting cardiology consultation and activati on of code STEMI. 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 Found with LAD occlusion amenable to stenting. Seen in ICU post cardiac catheterization has a little bit of a headache elevated blood pressure and significant improvement in his chest pain. Past Medical History Cardiovascular: No pertinent hx Musculoskeletal: Other Past Surgical History Past Surgical History: Other (Right AKA, multiple surgeries) Family History Family History: Diabetes Social History Smoke: <1 pack per day ALCOHOL: heavy Drugs: Marijuana Current Medications Current Medications Current Medications Fentanyl Citrate (Fentanyl 2ml Vial) 100 mcg STK-MED ONCE .ROUTE ; Start 10/02/21 at 11:54; Stop 10/02/21 at 11:54; Status DC Midazolam HCl (Versed) 2 mg STK-MED ONCE .ROUTE ; Start 10/02/21 at 11:54; Stop 10/02/21 at 11:54; Status DC Bivalirudin (Angiomax) 250 mg STK-MED ONCE IV ; Start 10/02/21 at 11:55; Stop 10/02/21 at 11:56; Status DC Morphine Sulfate (Morphine Sulfate) 1 mg PRN Q30MIN PRN IVP CHEST PAIN; Start 10/02/21 at 12:00 Ondansetron HCl (Zofran) 4 mg PRN Q4HRS PRN IVP NAUSEA/VOMITING; Start 10/02/21 at 12:00 Aspirin (Willie Aspirin) 325 mg 1X ONCE PO Last administered on 10/02/21at 12:04; Start 10/02/21 at 12:15; Stop 10/02/21 at 12:16; Status DC Sodium Chloride (Normal Saline Flush) 3 ml QSHIFT PRN IV AFTER MEDS AND BLOOD DRAWS; Start 10/02/21 at 12:00 Sodium Chloride 1,000 ml @ 1,000 mls/hr Q1H IV Last administered on 10/02/21at 12:04; Start 10/02/21 at 12:00; Stop 10/02/21 at 12:59 Iodixanol (Visipaque 320) 100 ml STK-MED ONCE .ROUTE ; Start 10/02/21 at 11:57; Stop 10/02/21 at 11:57; Status DC Lidocaine HCl (Lidocaine 1% 20ml Vial) 20 ml STK-MED ONCE .ROUTE ; Start 10/02/21 at 11:57; Stop 10/02/21 at 11:57; Status DC Heparin Sodium/ Sodium Chloride 1,000 ml @ As Directed STK-MED ONCE .ROUTE ; Start 10/02/21 at 11:57; Stop 10/02/21 at 11:57; Status DC Heparin Sodium (Porcine) (Heparin Sodium) 4,000 unit 1X ONCE IV Last administe red on 10/02/21at 12:08; Start 10/02/21 at 12:15; Stop 10/02/21 at 12:16; Status DC Morphine Sulfate (Morphine Sulfate) 2 mg STK-MED ONCE .ROUTE ; Start 10/02/21 at 12:01; Stop 10/02/21 at 12:02; Status DC Morphine Sulfate (Morphine Sulfate) 4 mg 1X ONCE IVP ; Start 10/02/21 at 12:15; Stop 10/02/21 at 12:16; Status Cancel Ondansetron HCl (Zofran) 4 mg 1X ONCE IVP ; Start 10/02/21 at 12:15; Stop 10/02/21 at 12:16; Status DC Morphine Sulfate (Morphine Sulfate) 2 mg 1X ONCE IVP Last administered on 10/02/21at 12:05; Start 10/02/21 at 12:15; Stop 10/02/21 at 12:16; Status DC Bivalirudin (Angiomax) 250 mg STK-MED ONCE IV ; Start 10/02/21 at 12:24; Stop 10/02/21 at 12:25; Status DC Heparin Sodium/ Sodium Chloride (HEPARIN for ARTERIAL LINE FLUSH) 1,000 unit 1X ONCE IART Last administered on 10/02/21at 12:30; Start 10/02/21 at 12:30; Stop 10/02/21 at 12:32; Status DC Heparin Sodium/ Sodium Chloride (HEPARIN for ARTERIAL LINE FLUSH) 1,000 unit 1X ONCE IART Last administered on 10/02/21at 12:30; Start 10/02/21 at 12:30; Stop 10/02/21 at 12:32; Status DC Midazolam HCl (Versed) 2 mg 1X ONCE IV Last administered on 10/02/21 12:15; Start 10/02/21 at 12:30; Stop 10/02/21 at 12:32; Status DC Fentanyl Citrate (Fentanyl 2ml Vial) 100 mcg 1X ONCE IV Last administered on 10/02/21 12:15; Start 10/02/21 at 12:30; Stop 10/02/21 at 12:32; Status DC Iodixanol (Visipaque 320) 100 ml 1X ONCE IART Last administered on 10/02/21at 12:45; Start 10/02/21 at 12:30; Stop 10/02/21 at 12:32; Status DC Bivalirudin (Angiomax) 250 mg 1X ONCE IV Last administered on 10/02/21 12:20; Start 10/02/21 at 12:30; Stop 10/02/21 at 12:32; Status DC Lidocaine HCl (Lidocaine 1% 20ml Vial) 20 ml 1X ONCE INJ Last administered on 10/02/21at 12:14; Start 10/02/21 at 12:30; Stop 10/02/21 at 12:32; Status DC Midazolam HCl (Versed) 2 mg STK-MED ONCE .ROUTE ; Start 10/02/21 at 12:33; Stop 10/02/21 at 12:34; Status DC Iodixanol (Visipaque 320) 100 ml STK-MED ONCE .ROUTE ; Start 10/02/21 at 12:35; Stop 10/02/21 at 12:35; Status DC Hydralazine HCl (Apresoline Inj) 20 mg STK-MED ONCE .ROUTE ; Start 10/02/21 at 12:35; Stop 10/02/21 at 12:36; Status DC Hydralazine HCl (Apresoline Inj) 20 mg 1X ONCE IVP Last administered on 10/02/21at 12:35; Start 10/02/21 at 12:45; Stop 10/02/21 at 12:46; Status DC Clopidogrel Bisulfate (Plavix) 75 mg STK-MED ONCE .ROUTE ; Start 10/02/21 at 12:47; Stop 10/02/21 at 12:47; Status DC Clopidogrel Bisulfate (Plavix) 600 mg 1X ONCE PO ; Start 10/02/21 at 13:00; Stop 10/02/21 at 13:01; Status UNV Active Scripts Active Cephalexin 500 Mg Capsule 1 Cap PO QID Thera-M Tablet (Multivits,Ca,Minerals/Iron/Fa) 1 Each Tablet 1 Tab PO DAILY 30 Days Vitamin D (Cholecalciferol (Vitamin D3)) 1,000 Unit Tablet 1,000 Unit PO DAILY 30 Days Polyethylene Glycol 3350 17 Gm Powd.pack 17 Gm PO PRN DAILY PRN 30 Days [Bisacodyl] 10 MG Supp.rect 10 Mg NH 1X PRN PRN 10 Days Hydrocodone-Apap 7.5-325 (Hydrocodone Bit/Acetaminophen) 1 Tab Tablet 1 Tab PO PRN Q4HRS PRN 14 Days Aspirin Ec (Aspirin) 325 Mg Tablet.dr 325 Mg PO BID 30 Days Allergies Allergies: Coded Allergies: codeine (Verified Allergy, Intermediate, Itching, 11/26/18) ROS General: YES: Fatigue, Malaise; No: Chills, Night Sweats, Appetite, Other PSYCHOLOGICAL ROS: No: Anxiety, Behavioral Disorder, Concentration difficultie, Decreased libido, Depression, Disorientation, Hallucinations, Hostility, Irritablity, Memory difficulties, Mood Swings, Obsessive thoughts, Physical abuse, Sexual abuse, Sleep disturbances, Suicidal ideation, Other Eyes: No Blurry vision, No Decreased vision, No Double vision, No Dry eyes, No Excessive tearing, No Eye Pain, No Itchy Eyes, No Loss of vision, No Photo phobia, No Scotomata, No Uses contacts, No Uses glasses, No Other HEENT: No: Heacaches, Visual Changes, Hearing change, Nasal congestion, Nasal discharge, Oral lesions, Sinus pain, Sore Throat, Epistaxis, Sneezing, Snoring, Tinnitus, Vertigo, Vocal changes, Other ALLERGY AND IMMUNOLOGY: No: Hives, Insect Bite Sensitivity, Itchy/Watery Eyes, Nasal Congestion, Post Nasal Drip, Seasonal Allergies, Other Hematological and Lymphatic: No: Bleeding Problems, Blood Clots, Blood Transfusions, Brusing, Night Sweats, Pallor, Swollen Lymph Nodes, Other ENDOCRINE: No: Breast Changes, Galactorrhea, Hair Pattern Changes, Hot Flashes, Malaise/lethargy, Mood Swings, Palpitations, Polydipsia/polyuria, Skin Changes, Temperature Intolerance, Unexpected Weight Changes, Other Breast: No New/Changing Breast Lumps, No Nipple changes, No Nipple discharge, No Other Respiratory: YES: Cough; No: Hemoptysis, Orthopnea, Pleuritic Pain, Shortness of breath, SOB with excertion, Sputum Changes, Stridor, Tachypnea, Wheezing, Other Cardiovascular: No Chest Pain, No Palpitations, No Orthopnea, No Paroxysmal Noc. Dyspnea, No Edema, No Lt Headedness, No Other Gastrointestinal: Yes Nausea; No Vomiting, No Abdominal Pain, No Diarrhea, No Constipation, No Melena, No Hematochezia, No Other Genitourinary: No Dysuria, No Frequency, No Incontinence, No Hematuria, No Retention, No Discharge, No Urgency, No Pain, No Flank Pain, No Other, No , No , No , No , No , No , No Musculoskeletal: No Gait Disturbance, No Joint Pain, No Joint Stiffness, No J oint Swelling, No Muscle Pain, No Muscular Weakness, No Pain In:, No Swelling In:, No Other Neurological: Yes Headaches; No Behavorial Changes, No Bowel/Bladder ControlChng, No Confusion, No Dizziness, No Gait Disturbance, No Impaired Coord/balance, No Memory Loss, No Numbness/Tingling, No Seizures, No Speech Problems, No Tremors, No Visual Changes, No Weakness, No Other Skin: No Dry Skin, No Eczema, No Hair Changes, No Lumps, No Mole Changes, No Mottling, No Nail Changes, No Pruritus, No Rash, No Skin Lesion Changes, No Other, No Acne Physical Exam General: Alert, Oriented X3, Cooperative, mild distress HEENT: Atraumatic, PERRLA, EOMI, Mucous membr. moist/pink Lungs: Clear to auscultation, Normal air movement Heart: S1S2, RRR, no thrills, no rubs, no gallops, no murmurs Abdomen: Normal bowel sounds, Soft, No tenderness, No hepatosplenomegaly, No masses Rectal Exam: not examined Extremities: No clubbing, No cyanosis, No edema, Normal pulses, Other (Right AKA, clean stump) Skin: No rashes, No breakdown, No significant lesion Neuro: Normal speech, Strength at 5/5 X4 ext, Normal tone, Sensation intact, Cranial nerves 3-12 NL, Reflexes 2+ Psych/Mental Status: Mental status NL, Mood NL Vitals Vitals Vital Signs Date Time Temp Pulse Resp B/P (MAP) Pulse Ox O2 Delivery O2 Flow Rate FiO2 10/02/21 12:35 95 10/02/21 12:15 18 10/02/21 12:05 96 Room Air 10/02/21 11:37 98.3 143/99 (114) 98.3 Labs Labs Laboratory Tests Test 10/02/21 11:54 White Blood Count 9.4 x10^3/uL (4.0-11.0) Red Blood Count 5.10 x10^6/uL (4.30-5.70) Hemoglobin 16.1 g/dL (13.0-17.5) Hematocrit 47.8 % (39.0-53.0) Mean Corpuscular Volume 94 fL (79-100) Mean Corpuscular Hemoglobin 32 pg (25-35) Mean Corpuscular Hemoglobin Concent 34 g/dL (31-37) Red Cell Distribution Width 14.4 % (11.5-14.5) Platelet Count 334 x10^3/uL (140-400) Neutrophils (%) (Auto) 85 % (31-73) Lymphocytes (%) (Auto) 12 % (24-48) Monocytes (%) (Auto) 3 % (0-9) Eosinophils (%) (Auto) 0 % (0-3) Basophils (%) (Auto) 0 % (0-3) Neutrophils # (Auto) 7.9 x10^3/uL (1.8-7.7) Lymphocytes # (Auto) 1.1 x10^3/uL (1.0-4.8) Monocytes # (Auto) 0.3 x10^3/uL (0.0-1.1) Eosinophils # (Auto) 0.0 x10^3/uL (0.0-0.7) Basophils # (Auto) 0.0 x10^3/uL (0.0-0.2) Prothrombin Time 12.7 SEC (11.7-14.0) Prothromb Time International Ratio 1.0 (0.8-1.1) Activated Partial Thromboplast Time 28 SEC (24-38) Sodium Level 145 mmol/L (136-145) Potassium Level 4.0 mmol/L (3.5-5.1) Chloride Level 105 mmol/L (98-107) Carbon Dioxide Level 24 mmol/L (21-32) Anion Gap 16 (6-14) Blood Urea Nitrogen 9 mg/dL (8-26) Creatinine 0.8 mg/dL (0.7-1.3) Estimated GFR (Cockcroft-Gault) 128.9 BUN/Creatinine Ratio 11 (6-20) Glucose Level 163 mg/dL (70-99) Calcium Level 9.4 mg/dL (8.5-10.1) Total Bilirubin 0.3 mg/dL (0.2-1.0) Aspartate Amino Transf (AST/SGOT) 116 U/L (15-37) Alanine Aminotransferase (ALT/SGPT) 126 U/L (16-63) Alkaline Phosphatase 82 U/L (46-116) Troponin I High Sensitivity 225 ng/L (4-75) XJ-Ceb-I-Type Natriuretic Peptide 12 pg/mL (0-124) Total Protein 8.4 g/dL (6.4-8.2) Albumin 4.5 g/dL (3.4-5.0) Albumin/Globulin Ratio 1.2 (1.0-1.7) Laboratory Tests Test 10/02/21 11:54 White Blood Count 9.4 x10^3/uL (4.0-11.0) Red Blood Count 5.10 x10^6/uL (4.30-5.70) Hemoglobin 16.1 g/dL (13.0-17.5) Hematocrit 47.8 % (39.0-53.0) Mean Corpuscular Volume 94 fL (79-100) Mean Corpuscular Hemoglobin 32 pg (25-35) Mean Corpuscular Hemoglobin Concent 34 g/dL (31-37) Red Cell Distribution Width 14.4 % (11.5-14.5) Platelet Count 334 x10^3/uL (140-400) Neutrophils (%) (Auto) 85 % (31-73) Lymphocytes (%) (Auto) 12 % (24-48) Monocytes (%) (Auto) 3 % (0-9) Eosinophils (%) (Auto) 0 % (0-3) Basophils (%) (Auto) 0 % (0-3) Neutrophils # (Auto) 7.9 x10^3/uL (1.8-7.7) Lymphocytes # (Auto) 1.1 x10^3/uL (1.0-4.8) Monocytes # (Auto) 0.3 x10^3/uL (0.0-1.1) Eosinophils # (Auto) 0.0 x10^3/uL (0.0-0.7) Basophils # (Auto) 0.0 x10^3/uL (0.0-0.2) Prothrombin Time 12.7 SEC (11.7-14.0) Prothromb Time International Ratio 1.0 (0.8-1.1) Activated Partial Thromboplast Time 28 SEC (24-38) Sodium Level 145 mmol/L (136-145) Potassium Level 4.0 mmol/L (3.5-5.1) Chloride Level 105 mmol/L (98-107) Carbon Dioxide Level 24 mmol/L (21-32) Anion Gap 16 (6-14) Blood Urea Nitrogen 9 mg/dL (8-26) Creatinine 0.8 mg/dL (0.7-1.3) Estimated GFR (Cockcroft-Gault) 128.9 BUN/Creatinine Ratio 11 (6-20) Glucose Level 163 mg/dL (70-99) Calcium Level 9.4 mg/dL (8.5-10.1) Total Bilirubin 0.3 mg/dL (0.2-1.0) Aspartate Amino Transf (AST/SGOT) 116 U/L (15-37) Alanine Aminotransferase (ALT/SGPT) 126 U/L (16-63) Alkaline Phosphatase 82 U/L (46-116) Troponin I High Sensitivity 225 ng/L (4-75) UM-Xdf-G-Type Natriuretic Peptide 12 pg/mL (0-124) Total Protein 8.4 g/dL (6.4-8.2) Albumin 4.5 g/dL (3.4-5.0) Albumin/Globulin Ratio 1.2 (1.0-1.7) VTE Prophylaxis Ordered VTE Prophylaxis Devices: No VTE Pharmacological Prophylaxi: Yes Assessment/Plan Assessment/Plan STEMI - LAD s/p PCI and VELMA. Needs dual antiplatelet therapy. ICU monitoring. Cardiac rehabilitation. Accelerated hypertension - will need BB and ARB. prn hydralazine IV HLD - statin, check fasting lipids in a.m., A1c, TSH Tobacco abuse - offered nicotine patch, counseled on cessation Alcohol abuse - counseled on cessation, will place on CIWA FEN - Cardiac diet PPX - heparin FULL CODE Dispo - ICU post cath cc time 32 min Justifications for Admission Other Justification DENNIS BAINS MD Oct 02, 2021 12:59
[2021-10-02] MEDS ORDERED: LABETALOL 20 MG/4 ML DISP.SYRIN. IVP ONE (13:06)
[2021-10-02] MEDS: LABETALOL 20 MG/4 ML DISP.SYRIN. IVP PRN ×3 (13:14→19:11)
[2021-10-02] MEDS ORDERED: NITROGLYCERIN SUBLINGUAL 0.4 MG BOTTLE OF 25. SL PRN (13:15)
[2021-10-02] MEDS ORDERED: ACETAMINOPHEN 325 MG TABLET. PO PRN (13:15)
[2021-10-02] MEDS: IV 1/2 NORMAL SALINE 1,000 ML IV SCH (13:30)
--- NOTE | 2021-10-02 13:32 | CARD ---
MR#: [id number] Date of Study: 10/02/2021 Ordering Physician: JULIA DYSON, Referring Physician: JULIA DYSON, Tech: RT Shandra(R) APPROVED REPORT Technologist: RT Shandra(R) Nurse: Marisabel Valencia RN Procedure(s) performed: 1. Left heart catheterization, selective coronary angiography and left ventr iculography 2. Successful PCI/drug-eluting stent placement to the left anterior descending artery MODERATE SEDATION TIME: 65 MINUTES FLUORO TIME: 7.5 MIN DOSE: 74 GYCM2 CONTRAST: 172CC VISI INDICATION The indication(s) include : Acute ST elevation myocardial infarction. [facility] Clinical Frailty Scale [facility] Clinical Frailty Scale: Mildly Frail Heart Failure Heart Failure: No CASE TECHNIQUE IV conscious sedation was used throughout procedure with appropriate monitoring and was performed in the presence of a registered nurse who was an independent trained observer other than the physician p erforming the procedure. During this case, Fluoroscopy and low osmolar contrast were used for imaging . Specimen(s) Removed: No Estimated Blood loss: 10 cc's. PROCEDURE NARRATIVE After explaining the risk, benefits and alternative options, informed consent was obtained from patie nt. Patient was brought to the cardiac [employer] De[employer] Operator and his right groin was prepped and draped in the us ual fashion. 20 cc of 2% lidocaine was infiltrated into the skin and subcutaneous tissues for local anesthesia. Arterial access was obtained in the right common femoral artery and a 6 [place] [employer] sheath wa s inserted. 6 [place] [employer] JL4 and 6 [place] [employer] JR4 catheters were used to perform selective angiography of th e left and right coronary arteries. 6 [place] [employer] catheter was used to perform left ventriculography. Th e following findings were noted: FINDINGS 1. Hemodynamics: Left ventricular end-diastolic pressure 22 mmHg. No pullback gradient across the a ortic valve. 2. Left ventriculography: Normal left ventricle systolic function with ejection fraction estimated a t 60%. No significant mitral regurgitation seen. 3. Coronary angiography: a. The left main coronary artery arose from the left sinus of Valsalva, gave rise to the left anteri or descending and left circumflex arteries and did not show any significant stenosis. b. The left anterior descending artery showed 90% stenosis with thrombus in the proximal to mid segm ent. c. The left circumflex artery did not show any significant stenosis. d. The right coronary artery was a large and dominant vessel arising from the right sinus of Valsalv a that did not show any significant stenosis. INTERVENTION The left main coronary artery was engaged with a 6 [place] [employer] XB 3.5 guide catheter. The stenosis in the proximal to mid segment of the left anterior descending artery was crossed with a 0.014 inch [employer] p rowater guidewire. This was predilated with a 3.0 x 15 mm [employer] Emerge balloon following which this was successfully treated with 4.0 x 26 mm resolute Dinh drug-eluting stent. Follow-up an giography showed resolution of the stenosis to 0% with RK-3 distal flow. Patient tolerated the pro cedure well. Hemostasis was achieved using Angio-Seal. There were no immediate complications. RK Flow RK Flow (Pre-Intervention): RK-2 RK Flow (Post-Intervention): RK-3 Conclusion 1. Severe single-vessel coronary artery disease involving the left anterior descending artery 2. Successful PCI/drug-eluting stent placement to the left anterior descending artery 3. Normal left ventricle systolic function with ejection fraction estimated at 60% Recommendations 1. Aspirin 325 mg daily for 1 month followed by 81 mg daily 2. Plavix 75 mg daily 3. Cardiovascular risk factor modification Signed by : Julia Dyson, Electronically Approved : 10/02/2021 13:32:32
--- NOTE | 2021-10-02 13:40 | NUR ---
1325 Pty admitted to 104 from prosthetics lab technician. Pt alert and oreinted. No complaints of chest pain or SOB at this time. 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 1345 Air taken out of fem stop but device left on. No leaking noted. Pt resting qietly at this time'
[2021-10-02] MEDS: CLOPIDOGREL BISULFATE 75 MG TABLET PO SCH (14:00)
[2021-10-02] MEDS: ASPIRIN ENTERIC COATED 325 MG TABLET.DR. PO SCH (14:00)
--- NOTE | 2021-10-02 15:01 | NUR ---
1440 Pt complaining of headache, BP noted to be >180 treated as per order, Pt requested something stronger than tylenol for the headache. Morphine given as per order within 5 minutes of administration of this pt vomitted up over 500cc gastric contents. Zofran given. 1500Pt resting comfortably at this time. Rt groin site remains soft, dry and intact.
[2021-10-02] MEDS: fentaNYL PF VIAL 100 MCG/2 ML VIAL IVP PRN ×2 (16:47→19:14)
[2021-10-02] MEDS: METOPROLOL TART IMMED RELEASE 25 MG TABLET. PO SCH ×2 (16:48→20:18)
[2021-10-02] MEDS: LOSARTAN POTASSIUM 25 MG TABLET. PO SCH (17:00)
[2021-10-02] MEDS ORDERED: DEXTROSE 50% 25 GM / 50ML DISP.SYRIN. IV PRN ×2 (17:30)
[2021-10-02] MEDS ORDERED: IV DEXTROSE 5% 250 ML BAG. IV PRN ×2 (17:30)
[2021-10-02] MEDS ORDERED: NICOTINE 14MG PATCH. TD PRN (17:45)
[2021-10-02] MEDS: FOLIC ACID 1 MG TABLET. PO SCH (18:00)
[2021-10-02] MEDS: MULTIVITAMIN with MINERAL TABLET. PO SCH (18:00)
[2021-10-02] MEDS: THIAMINE 100 MG TABLET. PO SCH (18:00)
[2021-10-02 18:54] LABS: CHOLESTEROL/HDL RATIO 4.5
--- NOTE | 2021-10-02 19:53 | RAD ---
Single view chest dated 10/02/2021 7:50 PM: COMPARISON: None Clinical Indication: Shortness of breath. Findings: Single upright portable exam of the chest was performed. Heart size and mediastinal contours are with in normal limits. Lungs are clear. No consolidation or pleural effusion. No pneumothorax. IMPRESSION: No acute radiographic abnormality. Electronically signed by: Orestes Ty MD (10/02/2021 7:50 PM) [facility]
[2021-10-02] MEDS: ATORVASTATIN CALCIUM 20 MG TABLET PO SCH (20:18)
[2021-10-02] MEDS ORDERED: INSULIN LISPRO 300 UNITS/3 ML VIAL. SQ SCH (21:00)
[2021-10-02] MEDS: INSULIN LISPRO 300 UNITS/3 ML VIAL. SQ SCH (21:00)
[2021-10-03] VITALS (15 sets, daily range): BP systolic 136–189; BP diastolic 60–110
[2021-10-03 02:08] LABS: HEMOGLOBIN A1C 6.2 % (4.8-5.6)
[2021-10-03] MEDS: IV 1/2 NORMAL SALINE 1,000 ML IV SCH ×2 (03:00→15:55)
[2021-10-03 05:40] LABS: HEMATOCRIT 44.4 % (39.0-53.0); HEMOGLOBIN 14.9 g/dL (13.0-17.5); RED BLOOD COUNT 4.78 x10^6/uL (4.30-5.70); RED CELL DISTRIBUTION WIDTH 14.1 % (11.5-14.5); WHITE BLOOD COUNT 8.2 x10^3/uL (4.0-11.0)
[2021-10-03 06:02] LABS: ALBUMIN 3.4 g/dL (3.4-5.0); ALBUMIN/GLOBULIN RATIO 0.9 (1.0-1.7); CALCIUM 9.1 mg/dL (8.5-10.1); CREATININE 0.7 mg/dL (0.7-1.3); GFR 150.4; POTASSIUM 3.2 mmol/L (3.5-5.1); TOTAL BILIRUBIN 0.5 mg/dL (0.2-1.0); TOTAL PROTEIN 7.2 g/dL (6.4-8.2)
[2021-10-03] MEDS: INSULIN LISPRO 300 UNITS/3 ML VIAL. SQ SCH ×4 (07:30→21:00)
--- NOTE | 2021-10-03 07:45 | PHYS DOC ---
Past Medical History Past Medical History: No Pertinent History Past Surgical History: Other Additional Past Surgical Histo: right AKA, L rods in arm, Bladder surgery Smoking Status: Current Every Day Smoker Alcohol Use: Heavy Drug Use: Marijuana Adult General Chief Complaint Chief Complaint: CHEST PAIN HPI HPI 41-year-old male smoker without any previous cardiac history presented with retrosternal chest pressure that he described as "elephant sitting on chest" that started 2 hours prior to presentation. He has mild associated shortness of breath but denied any orthopnea/PND, palpitations or syncope. EKG showed inferior ST elevations prompting cardiology consultation and activation of code STEMI. Review of Systems Review of Systems A 12 point review of systems was completed and was negative except where noted in HPI above. Current Medications Current Medications Current Medications Medications (Trade) Dose Ordered Sig/Jayne Start Time Stop Time Status Last Admin Dose Admin Bivalirudin (Angiomax) 250 mg STK-MED ONCE 10/02/21 11:55 10/02/21 11:56 DC Fentanyl Citrate (Fentanyl 2ml Vial) 100 mcg STK-MED ONCE 10/02/21 11:54 10/02/21 11:54 DC Heparin Sodium/ Sodium Chloride 1,000 ml @ As Directed STK-MED ONCE 10/02/21 11:57 10/02/21 11:57 DC Iodixanol (Visipaque 320) 100 ml STK-MED ONCE 10/02/21 11:57 10/02/21 11:57 DC Lidocaine HCl (Lidocaine 1% 20ml Vial) 20 ml STK-MED ONCE 10/02/21 11:57 10/02/21 11:57 DC Midazolam HCl (Versed) 2 mg STK-MED ONCE 10/02/21 11:54 10/02/21 11:54 DC Morphine Sulfate (Morphine Sulfate) 2 mg STK-MED ONCE 10/02/21 12:01 10/02/21 12:02 DC Ondansetron HCl (Zofran) 4 mg PRN Q4HRS PRN 10/02/21 12:00 10/02/21 20:17 4 MG Sodium Chloride 1,000 ml @ 1,000 mls/hr Q1H 10/02/21 12:00 10/02/21 12:59 DC 10/02/21 12:04 1,000 MLS/HR Sodium Chloride (Normal Saline Flush) 3 ml QSHIFT PRN 10/02/21 12:00 Allergies Allergies Allergies Coded Allergies Type Severity Reaction Last Updated Verified codeine Allergy Intermediate Itching 11/26/18 Yes Physical Exam Physical Exam Constitutional: Well developed, well nourished, no acute distress, non-toxic appearance. [] HENT: Normocephalic, atraumatic, bilateral external ears normal, oropharynx moist, no oral exudates, nose normal. [] Eyes: PERRLA, EOMI, conjunctiva normal, no discharge. [] Neck: Normal range of motion, no tenderness, supple, no stridor. [] Cardiovascular:Heart rate regular rhythm, no murmur [] Lungs & Thorax: Bilateral breath sounds clear to auscultation [] Abdomen: Bowel sounds normal, soft, no tenderness, no masses, no pulsatile mass es. [] Skin: Warm, dry, no erythema, no rash. [] Back: No tenderness, no CVA tenderness. [] Extremities: No tenderness, no cyanosis, no clubbing, ROM intact, no edema. [] Neurologic: Alert and oriented X 3, normal motor function, normal sensory function, no focal deficits noted. [] Psychologic: Affect normal, judgement normal, mood normal. [] Current Patient Data Vital Signs Vital Signs Date Time Temp Pulse Resp B/P (MAP) Pulse Ox O2 Delivery O2 Flow Rate FiO2 10/02/21 11:37 98.3 89 22 143/99 (114) 97 Room Air 98.3 Lab Values Laboratory Tests Test 10/02/21 11:54 White Blood Count 9.4 x10^3/uL (4.0-11.0) Red Blood Count 5.10 x10^6/uL (4.30-5.70) Hemoglobin 16.1 g/dL (13.0-17.5) Hematocrit 47.8 % (39.0-53.0) Mean Corpuscular Volume 94 fL (79-100) Mean Corpuscular Hemoglobin 32 pg (25-35) Mean Corpuscular Hemoglobin Concent 34 g/dL (31-37) Red Cell Distribution Width 14.4 % (11.5-14.5) Platelet Count 334 x10^3/uL (140-400) Neutrophils (%) (Auto) 85 % (31-73) H Lymphocytes (%) (Auto) 12 % (24-48) L Monocytes (%) (Auto) 3 % (0-9) Eosinophils (%) (Auto) 0 % (0-3) Basophils (%) (Auto) 0 % (0-3) Neutrophils # (Auto) 7.9 x10^3/uL (1.8-7.7) H Lymphocytes # (Auto) 1.1 x10^3/uL (1.0-4.8) Monocytes # (Auto) 0.3 x10^3/uL (0.0-1.1) Eosinophils # (Auto) 0.0 x10^3/uL (0.0-0.7) Basophils # (Auto) 0.0 x10^3/uL (0.0-0.2) Prothrombin Time 12.7 SEC (11.7-14.0) Prothrombin Time INR 1.0 (0.8-1.1) Activated Partial Thromboplast Time 28 SEC (24-38) Sodium Level 145 mmol/L (136-145) Potassium Level 4.0 mmol/L (3.5-5.1) Chloride Level 105 mmol/L (98-107) Carbon Dioxide Level 24 mmol/L (21-32) Anion Gap 16 (6-14) H Blood Urea Nitrogen 9 mg/dL (8-26) Creatinine 0.8 mg/dL (0.7-1.3) Estimated GFR (Cockcroft-Gault) 128.9 BUN/Creatinine Ratio 11 (6-20) Glucose Level 163 mg/dL (70-99) H Calcium Level 9.4 mg/dL (8.5-10.1) Total Bilirubin 0.3 mg/dL (0.2-1.0) Aspartate Amino Transferase (AST) 116 U/L (15-37) H Alanine Aminotransferase (ALT) 126 U/L (16-63) H Alkaline Phosphatase 82 U/L (46-116) Troponin I High Sensitivity 225 ng/L (4-75) H EG-Rjz-Q-Type Natriuretic Peptide 12 pg/mL (0-124) Total Protein 8.4 g/dL (6.4-8.2) H Albumin 4.5 g/dL (3.4-5.0) Albumin/Globulin Ratio 1.2 (1.0-1.7) Laboratory Tests 10/02/21 11:54 Laboratory Tests 10/02/21 11:54 EKG EKG Acute inferior ST elevation myocardial infarction, EP interpretation. Radiology/Procedures Radiology/Procedures Single view chest dated 10/02/2021 7:50 PM: COMPARISON: None Clinical Indication: Shortness of breath. Findings: Single upright portable exam of the chest was performed. Heart size and med iastinal contours are within normal limits. Lungs are clear. No consolidation or pleural effusion. No pneumothorax. IMPRESSION: No acute radiographic abnormality. Electronically signed by: Orestes Ty MD (10/02/2021 7:50 PM) [facility] [place] DICTATED and SIGNED BY: ORESTES TY MD DATE: 10/02/21 [id number] 0 Course & Med Decision Making Course & Med Decision Making Code STEMI. Dr. Dyson immediately at the bedside to take the patient to the cardiac catheterization lab for intervention. Departing the ED in stable condition. Critical care time 43 minutes. Dragon Disclaimer Dragon Disclaimer This electronic medical record was generated, in whole or in part, using a voice recognition dictation system. Departure Departure Impression: Primary Impression: Acute inferior myocardial infarction Disposition: ADMITTED INPATIENT Condition: CRITICAL Referrals: NO PCP (PCP) ROMEO GAMBINO MD Oct 03, 2021 07:45
[2021-10-03] MEDS: ASPIRIN ENTERIC COATED 325 MG TABLET.DR. PO SCH (08:09)
[2021-10-03] MEDS: LOSARTAN POTASSIUM 25 MG TABLET. PO SCH (08:09)
[2021-10-03] MEDS: CLOPIDOGREL BISULFATE 75 MG TABLET PO SCH (08:09)
[2021-10-03] MEDS: MULTIVITAMIN with MINERAL TABLET. PO SCH (08:09)
[2021-10-03] MEDS: FOLIC ACID 1 MG TABLET. PO SCH (08:09)
[2021-10-03] MEDS: METOPROLOL TART IMMED RELEASE 25 MG TABLET. PO SCH ×2 (08:10→21:23)
[2021-10-03] MEDS: THIAMINE 100 MG TABLET. PO SCH (08:11)
--- NOTE | 2021-10-03 09:34 | PDOC ---
PROGRESS NOTES Date of Service: DATE: 10/03/21 TIME: 09:33 Subjective Subjective Feeling much better today. Denied any chest pain. Objective Objective Vital Signs Date Time Temp Pulse Resp B/P (MAP) Pulse Ox O2 Delivery O2 Flow Rate FiO2 10/03/21 08:10 71 146/76 10/03/21 08:00 Room Air 10/03/21 07:00 18 96 10/03/21 04:00 98.7 98.7 10/02/21 13:01 2.0 Intake and Output 10/03/21 07:00 Intake Total 2679 ml Output Total 1750 ml Balance 929 ml Intake Oral 1500 ml IV Total 1179 ml Output Urine Total 1750 ml Physical Exam Abdomen: Normal bowel sounds, Soft, No tenderness, No masses Heart: Regular rate Extremities: No clubbing, No cyanosis, No edema, Normal pulses, Other (Right AKA, clean stump) General: Alert, Oriented X3, Cooperative, mild distress HEENT: Atraumatic, PERRLA, EOMI, Mucous membr. moist/pink Lungs: Clear to auscultation, Normal air movement MUSCULOSKELETAL: Other Neuro: Normal speech, Normal tone, Sensation intact, Reflexes 2+ Psych/Mental Status: Mental status NL, Mood NL Skin: No rashes, No breakdown, No significant lesion Assessment Assessment . Acute ST elevation myocardial infarction: Cardiac catheterization yesterday showed significant stenosis involving LAD that was treated with drug-eluting stent. 2D echo showed normal LV systolic function with EF 60%. He is currently c hest pain-free. Right groin looked good. Telemetry showed one brief episode of NSVT. Continue dual antiplatelet therapy and secondary prevention measure. We will refer patient for cardiac rehabilitation. 2. Accelerated hypertension: Blood pressure better controlled but still slightly elevated. Increase metoprolol dose for better control. 3. Hyperlipidemia: Statins 4. Tobacco and alcohol abuse: Advised on complete cessation Transfer to telemetry status Comment Review of Relevant I have reviewed the following items tarah (where applicable) has been applied. Labs Laboratory Tests Test 10/02/21 11:54 10/02/21 15:30 10/02/21 18:15 10/02/21 20:52 White Blood Count 9.4 x10^3/uL (4.0-11.0) Red Blood Count 5.10 x10^6/uL (4.30-5.70) Hemoglobin 16.1 g/dL (13.0-17.5) Hematocrit 47.8 % (39.0-53.0) Mean Corpuscular Volume 94 fL (79-100) Mean Corpuscular Hemoglobin 32 pg (25-35) Mean Corpuscular Hemoglobin Concent 34 g/dL (31-37) Red Cell Distribution Width 14.4 % (11.5-14.5) Platelet Count 334 x10^3/uL (140-400) Neutrophils (%) (Auto) 85 % (31-73) Lymphocytes (%) (Auto) 12 % (24-48) Monocytes (%) (Auto) 3 % (0-9) Eosinophils (%) (Auto) 0 % (0-3) Basophils (%) (Auto) 0 % (0-3) Neutrophils # (Auto) 7.9 x10^3/uL (1.8-7.7) Lymphocytes # (Auto) 1.1 x10^3/uL (1.0-4.8) Monocytes # (Auto) 0.3 x10^3/uL (0.0-1.1) Eosinophils # (Auto) 0.0 x10^3/uL (0.0-0.7) Basophils # (Auto) 0.0 x10^3/uL (0.0-0.2) Prothrombin Time 12.7 SEC (11.7-14.0) Prothromb Time International Ratio 1.0 (0.8-1.1) Activated Partial Thromboplast Time 28 SEC (24-38) Sodium Level 145 mmol/L (136-145) Potassium Level 4.0 mmol/L (3.5-5.1) Chloride Level 105 mmol/L (98-107) Carbon Dioxide Level 24 mmol/L (21-32) Anion Gap 16 (6-14) Blood Urea Nitrogen 9 mg/dL (8-26) Creatinine 0.8 mg/dL (0.7-1.3) Estimated GFR (Cockcroft-Gault) 128.9 BUN/Creatinine Ratio 11 (6-20) Glucose Level 163 mg/dL (70-99) Calcium Level 9.4 mg/dL (8.5-10.1) Total Bilirubin 0.3 mg/dL (0.2-1.0) Aspartate Amino Transf (AST/SGOT) 116 U/L (15-37) Alanine Aminotransferase (ALT/SGPT) 126 U/L (16-63) Alkaline Phosphatase 82 U/L (46-116) Troponin I High Sensitivity 225 ng/L (4-75) 2488 ng/L (4-75) 5830 ng/L (4-75) QA-Lbi-W-Type Natriuretic Peptide 12 pg/mL (0-124) Total Protein 8.4 g/dL (6.4-8.2) Albumin 4.5 g/dL (3.4-5.0) Albumin/Globulin Ratio 1.2 (1.0-1.7) Hemoglobin A1c 6.2 % (4.8-5.6) Triglycerides Level 143 mg/dL (0-150) Cholesterol Level 245 mg/dL (0-200) LDL Cholesterol, Calculated 161 mg/dL (0-100) VLDL Cholesterol, Calculated 29 mg/dL (0-40) Non-HDL Cholesterol Calculated 190 mg/dL (0-129) HDL Cholesterol 55 mg/dL (40-60) Cholesterol/HDL Ratio 4.5 Thyroid Stimulating Hormone (TSH) 1.368 uIU/mL (0.358-3.74) Glucose (Fingerstick) 119 mg/dL (70-99) Test 10/03/21 05:00 10/03/21 08:07 White Blood Count 8.2 x10^3/uL (4.0-11.0) Red Blood Count 4.78 x10^6/uL (4.30-5.70) Hemoglobin 14.9 g/dL (13.0-17.5) Hematocrit 44.4 % (39.0-53.0) Mean Corpuscular Volume 93 fL (79-100) Mean Corpuscular Hemoglobin 31 pg (25-35) Mean Corpuscular Hemoglobin Concent 34 g/dL (31-37) Red Cell Distribution Width 14.1 % (11.5-14.5) Platelet Count 295 x10^3/uL (140-400) Sodium Level 139 mmol/L (136-145) Potassium Level 3.2 mmol/L (3.5-5.1) Chloride Level 104 mmol/L (98-107) Carbon Dioxide Level 24 mmol/L (21-32) Anion Gap 11 (6-14) Blood Urea Nitrogen 6 mg/dL (8-26) Creatinine 0.7 mg/dL (0.7-1.3) Estimated GFR (Cockcroft-Gault) 150.4 BUN/Creatinine Ratio 9 (6-20) Glucose Level 125 mg/dL (70-99) Calcium Level 9.1 mg/dL (8.5-10.1) Total Bilirubin 0.5 mg/dL (0.2-1.0) Aspartate Amino Transf (AST/SGOT) 184 U/L (15-37) Alanine Aminotransferase (ALT/SGPT) 90 U/L (16-63) Alkaline Phosphatase 68 U/L (46-116) Total Protein 7.2 g/dL (6.4-8.2) Albumin 3.4 g/dL (3.4-5.0) Albumin/Globulin Ratio 0.9 (1.0-1.7) Glucose (Fingerstick) 106 mg/dL (70-99) Medications Current Medications Acetaminophen (Tylenol) 650 mg PRN Q6HRS PRN PO MILD PAIN / TEMP > 100.3'F Last administered on 10/02/21at 19:13; Start 10/02/21 at 13:15 Aspirin (Willie Aspirin) 325 mg 1X ONCE PO Last administered on 10/02/21at 12:04; Start 10/02/21 at 12:15; Stop 10/02/21 at 12:16; Status DC Aspirin (Ecotrin) 325 mg DAILYWBKFT PO Last administered on 10/03/21at 08:09; Start 10/02/21 at 14:00 Atorvastatin Calcium (Lipitor) 40 mg QHS PO Last administered on 10/02/21at 20:18; Start 10/02/21 at 21:00 Bivalirudin (Angiomax) 250 mg 1X ONCE IV Last administered on 10/02/21at 12:20; Start 10/02/21 at 12:30; Stop 10/02/21 at 12:32; Status DC Bivalirudin (Angiomax) 250 mg STK-MED ONCE IV ; Start 10/02/21 at 11:55; Stop 10/02/21 at 11:56; Status DC Bivalirudin (Angiomax) 250 mg STK-MED ONCE IV ; Start 10/02/21 at 12:24; Stop 10/02/21 at 12:25; Status DC Clopidogrel Bisulfate (Plavix) 75 mg DAILYWBKFT PO Last administered on 10/03/21at 08:09; Start 10/02/21 at 14:00 Clopidogrel Bisulfate (Plavix) 75 mg STK-MED ONCE .ROUTE ; Start 10/02/21 at 12:47; Stop 10/02/21 at 12:47; Status DC Clopidogrel Bisulfate (Plavix) 600 mg 1X ONCE PO Last administered on 10/02/21at 13:10; Start 10/02/21 at 13:00; Stop 10/02/21 at 13:01; Status DC Dextrose (Dextrose 50%-Water Syringe) 12.5 gm PRN Q15MIN PRN IV SEE COMMENTS; Start 10/02/21 at 17:30; Stop 10/02/21 at 17:19; Status DC Dextrose (Dextrose 50%-Water Syringe) 12.5 gm PRN Q15MIN PRN IV SEE COMMENTS; Start 10/02/21 at 17:30 Dextrose (Iv Dextrose 5%) 250 ml PRN Q15MIN PRN IV SEE COMMENTS; Start 10/02/21 at 17:30; Stop 10/02/21 at 17:19; Status DC Dextrose (Iv Dextrose 5%) 250 ml PRN Q15MIN PRN IV SEE COMMENTS; Start 10/02/21 at 17:30 Fentanyl Citrate (Fentanyl 2ml Vial) 25 mcg PRN Q2HR PRN IVP PAIN Last administered on 10/02/21at 19:14; Start 10/02/21 at 15:00 Fentanyl Citrate (Fentanyl 2ml Vial) 100 mcg 1X ONCE IV Last administered on 10/02/21at 12:15; Start 10/02/21 at 12:30; Stop 10/02/21 at 12:32; Status DC Fentanyl Citrate (Fentanyl 2ml Vial) 100 mcg STK-MED ONCE .ROUTE ; Start 10/02/21 at 11:54; Stop 10/02/21 at 11:54; Status DC Folic Acid (Folic Acid) 1 mg DAILY PO Last administered on 10/03/21at 08:09; Start 10/02/21 at 18:00 Heparin Sodium (Porcine) (Heparin Sodium) 4,000 unit 1X ONCE IV Last administered on 10/02/21at 12:08; Start 10/02/21 at 12:15; Stop 10/02/21 at 12:16; Status DC Heparin Sodium/ Sodium Chloride 1,000 ml @ As Directed STK-MED ONCE .ROUTE ; Start 10/02/21 at 11:57; Stop 10/02/21 at 11:57; Status DC Heparin Sodium/ Sodium Chloride (HEPARIN for ARTERIAL LINE FLUSH) 1,000 unit 1X ONCE IART Last administered on 10/02/21at 12:30; Start 10/02/21 at 12:30; Stop 10/02/21 at 12:32; Status DC Heparin Sodium/ Sodium Chloride (HEPARIN for ARTERIAL LINE FLUSH) 1,000 unit 1X ONCE IART Last administered on 10/02/21at 12:30; Start 10/02/21 at 12:30; Stop 10/02/21 at 12:32; Status DC Hydralazine HCl (Apresoline Inj) 20 mg 1X ONCE IVP Last administered on 10/02/21at 12:35; Start 10/02/21 at 12:45; Stop 10/02/21 at 12:46; Status DC Hydralazine HCl (Apresoline Inj) 20 mg STK-MED ONCE .ROUTE ; Start 10/02/21 at 12:35; Stop 10/02/21 at 12:36; Status DC Insulin Human Lispro (HumaLOG) 0-7 UNITS TIDACHC SQ ; Start 10/02/21 at 21:00; Stop 10/02/21 at 17:19; Status DC Insulin Human Lispro (HumaLOG) 0-7 UNITS TIDACHC SQ ; Start 10/02/21 at 21:00 Iodixanol (Visipaque 320) 100 ml 1X ONCE IART Last administered on 10/02/21at 12:45; Start 10/02/21 at 12:30; Stop 10/02/21 at 12:32; Status DC Iodixanol (Visipaque 320) 100 ml STK-MED ONCE .ROUTE ; Start 10/02/21 at 11:57; Stop 10/02/21 at 11:57; Status DC Iodixanol (Visipaque 320) 100 ml STK-MED ONCE .ROUTE ; Start 10/02/21 at 12:35; Stop 10/02/21 at 12:35; Status DC Labetalol HCl (Normodyne Iv Push) 10 mg PRN Q10MIN PRN IVP HYPERTENSION Last administered on 10/02/21at 19:11; Start 10/02/21 at 13:15 Labetalol HCl (Normodyne Iv Push) 20 mg STK-MED ONCE IVP ; Start 10/02/21 at 13:06; Stop 10/02/21 at 13:06; Status DC Lidocaine HCl (Lidocaine 1% 20ml Vial) 20 ml 1X ONCE INJ Last administered on 10/02/21at 12:14; Start 10/02/21 at 12:30; Stop 10/02/21 at 12:32; Status DC Lidocaine HCl (Lidocaine 1% 20ml Vial) 20 ml STK-MED ONCE .ROUTE ; Start 10/02/21 at 11:57; Stop 10/02/21 at 11:57; Status DC Lorazepam (Ativan Inj) 0.5 mg PRN Q1HR PRN IV For CIWA 8-14; Start 10/02/21 at 17:45 Lorazepam (Ativan Inj) 1 mg PRN Q1HR PRN IV For CIWA 15 or greater; Start 10/02/21 at 17:45 Lorazepam (Ativan) 0.5 mg PRN Q1HR PRN PO For CIWA 8-14; Start 10/02/21 at 17:45 Lorazepam (Ativan) 1 mg PRN Q1HR PRN PO For CIWA 15 or greater; Start 10/02/21 at 17:45 Losartan Potassium (Cozaar) 25 mg DAILY PO Last administered on 10/03/21at 08:09; Start 10/02/21 at 14:00 Metoprolol Tartrate (Lopressor) 25 mg BID PO Last administered on 10/03/21at 08:10; Start 10/02/21 at 14:00 Midazolam HCl (Versed) 2 mg 1X ONCE IV Last administered on 10/02/21at 12:15; Start 10/02/21 at 12:30; Stop 10/02/21 at 12:32; Status DC Midazolam HCl (Versed) 2 mg STK-MED ONCE .ROUTE ; Start 10/02/21 at 11:54; Stop 10/02/21 at 11:54; Status DC Midazolam HCl (Versed) 2 mg STK-MED ONCE .ROUTE ; Start 10/02/21 at 12:33; Stop 10/02/21 at 12:34; Status DC Morphine Sulfate (Morphine Sulfate) 1 mg PRN Q30MIN PRN IVP CHEST PAIN Last administered on 10/02/21at 14:47; Start 10/02/21 at 12:00; Stop 10/02/21 at 15:01; Status DC Morphine Sulfate (Morphine Sulfate) 2 mg 1X ONCE IVP Last administered on 10/02/21at 12:05; Start 10/02/21 at 12:15; Stop 10/02/21 at 12:16; Status DC Morphine Sulfate (Morphine Sulfate) 2 mg STK-MED ONCE .ROUTE ; Start 10/02/21 at 12:01; Stop 10/02/21 at 12:02; Status DC Morphine Sulfate (Morphine Sulfate) 4 mg 1X ONCE IVP ; Start 10/02/21 at 12:15; Stop 10/02/21 at 12:16; Status Cancel Multivitamins (Thera M Plus) 1 tab DAILY PO Last administered on 10/03/21at 08:09; Start 10/02/21 at 18:00 Nicotine (Nicoderm Cq 14mg) 1 patch PRN DAILY PRN TD SMOKING CESSATION; Start 10/02/21 at 17:45 Nitroglycerin (Nitrostat) 0.4 mg PRN Q5MIN PRN SL CHEST PAIN; Start 10/02/21 at 13:15 Ondansetron HCl (Zofran) 4 mg 1X ONCE IVP Last administered on 10/02/21at 14:55; Start 10/02/21 at 12:15; Stop 10/02/21 at 12:16; Status DC Ondansetron HCl (Zofran) 4 mg PRN Q4HRS PRN IVP NAUSEA/VOMITING Last administered on 10/02/21at 20:17; Start 10/02/21 at 12:00 Sodium Chloride 1,000 ml @ 75 mls/hr [id number] IV Last administered on 10/03/21at 03:00; Start 10/02/21 at 13:15 Sodium Chloride 1,000 ml @ 1,000 mls/hr Q1H IV Last administered on 10/02/21at 12:04; Start 10/02/21 at 12:00; Stop 10/02/21 at 12:59; Status DC Sodium Chloride (Normal Saline Flush) 3 ml QSHIFT PRN IV AFTER MEDS AND BLOOD DRAWS; Start 10/02/21 at 12:00 Thiamine Mononitrate (Vitamin B-1) 100 mg DAILY PO Last administered on 10/03/21at 08:11; Start 10/02/21 at 18:00 Vitals/I & O Vital Sign - Last 24 Hours 10/02/21 10/02/21 10/02/21 10/02/21 11:37 12:05 12:15 12:35 Temp 98.3 98.3 Pulse 89 95 Resp 18 B/P (MAP) 143/99 (114) Pulse Ox 97 96 O2 Delivery Room Air Room Air 10/02/21 10/02/21 10/02/21 10/02/21 13:01 13:14 13:36 13:45 Temp 98.8 98.8 Pulse 105 105 104 103 Resp 18 16 B/P (MAP) 152/85 (107) 159/84 (109) Pulse Ox 97 95 96 O2 Delivery Nasal Cannula Room Air O2 Flow Rate 2.0 10/02/21 10/02/21 10/02/21 10/02/21 14:00 14:15 14:27 14:36 Pulse 101 98 93 Resp 18 16 B/P (MAP) 152/84 (106) 179/90 (119) 180/90 (120) Pulse Ox 95 95 O2 Delivery Room Air Room Air 10/02/21 10/02/21 10/02/21 10/02/21 14:43 14:47 14:58 16:27 Temp 98.8 98.8 Pulse 97 95 86 Resp 18 16 B/P (MAP) 183/92 182/92 (122) 169/100 (123) Pulse Ox 96 O2 Delivery Room Air 10/02/21 10/02/21 10/02/21 10/02/21 16:28 16:47 16:48 17:00 Pulse 87 88 Resp 14 B/P (MAP) 193/99 183/85 O2 Delivery Room Air Room Air 10/02/21 10/02/21 10/02/21 10/02/21 17:10 17:17 18:19 19:00 Pulse 84 92 98 Resp 16 16 16 22 B/P (MAP) 180/88 (118) 177/86 (116) 180/98 (125) Pulse Ox 96 96 98 O2 Delivery Room Air Room Air Room Air Room Air 10/02/21 10/02/21 10/02/21 10/02/21 19:11 19:14 19:44 20:00 Pulse 98 Resp 22 20 B/P (MAP) 180/98 Pulse Ox 97 96 O2 Delivery Room Air Room Air Room Air 10/02/21 10/02/21 10/02/21 10/02/21 20:00 20:18 21:00 22:00 Temp 99.0 99.0 Pulse 83 79 74 82 Resp 20 20 18 B/P (MAP) 187/86 (119) 176/103 169/86 (113) 175/93 (120) Pulse Ox 96 97 93 O2 Delivery Room Air Room Air Room Air 10/02/21 10/03/21 10/03/21 10/03/21 23:00 00:00 00:00 01:00 Temp 98.9 98.9 Pulse 76 99 96 Resp 18 20 20 B/P (MAP) 152/66 (94) 164/69 (100) 150/78 (102) Pulse Ox 94 98 100 O2 Delivery Room Air Room Air Room Air Room Air 10/03/21 10/03/21 10/03/21 10/03/21 02:00 03:00 04:00 04:00 Temp 98.7 98.7 Pulse 88 79 90 Resp 20 16 16 B/P (MAP) 157/66 (96) 136/66 (89) 165/68 (100) Pulse Ox 98 95 96 O2 Delivery Room Air Room Air Room Air Room Air 10/03/21 10/03/21 10/03/21 10/03/21 05:00 06:00 07:00 08:00 Pulse 73 69 70 Resp 16 20 18 B/P (MAP) 149/60 (89) 154/79 (104) 140/71 (94) Pulse Ox 94 100 96 O2 Delivery Room Air Room Air Room Air Room Air 10/03/21 10/03/21 08:09 08:10 Pulse 71 71 B/P (MAP) 146/76 146/76 Intake and Output 10/02/21 10/02/21 10/03/21 15:00 23:00 07:00 Intake Total 2679 ml Output Total 800 ml 950 ml Balance -800 ml 1729 ml JULIA WARREN MD 5, 2022 09:34
--- NOTE | 2021-10-03 09:50 | CARD ---
MR#: [id number] Date of Study: 10/02/2021 Ordering Physician: JULIA DYSON, Referring Physician: Natasha CAPELLAN: Ray Ag [facility] APPROVED REPORT EXAM: Two-dimensional and M-mode echocardiogram with Doppler and color Doppler. Other Information Quality : AverageHR: 93bpm Rhythm : NSR INDICATION Cardiac Disease: CAD STEMI RISK FACTORS Hypertension Smoking 2D DIMENSIONS Left Atrium(2D)3.5 (1.6-4.0cm)IVSd1.1 (0.7-1.1cm) Aortic Root(2D)3.5 (2.0-3.7cm)LVDd4.8 (3.9-5.9cm) LVOT Diameter2.5 (1.8-2.4cm)PWd1.1 (0.7-1.1cm) LVDs3.3 (2.5-4.0cm)FS (%) 31.9 % SV64.6 mlLVEF(%)59.9 (>50%) Aortic Valve AoV Peak Ryan.137.0cm/sAoV VTI23.0cm AO Peak GR.7.5mmHgLVOT Peak Ryan.121.5cm/s AO Mean GR.4mmHgAVA (VMAX)4.43cm2 Mitral Valve MV E Ddhkwuoe11.3cm/sMV DECEL [id number] MV A Uqjaiyxj98.6cm/sE/A Ratio0.9 Pulmonary Valve PV Peak Xftvpzct71.9cm/s Tricuspid Valve TR P. Eecsqxme756kv/sTR Peak Gr.16mmHg LEFT VENTRICLE The left ventricle is normal size. There is normal left ventricular wall thickness. The left ventricu lar systolic function is normal. The ejection fraction is 60%. There is normal LV segmental wall skye on. Transmitral Doppler flow pattern is Grade I-abnormal relaxation pattern. No left ventricle thromb us noted on this study. There is no ventricular septal defect visualized. There is no left ventricula r aneurysm. There is no mass noted in the left ventricle. RIGHT VENTRICLE The right ventricle is normal size. There is normal right ventricular wall thickness. The right ventr icular systolic function is normal. ATRIA The left atrium size is normal. The right atrium size is normal. The interatrial septum is intact wit h no evidence for an atrial septal defect or patent foramen ovale as noted on 2-D or Doppler imaging. AORTIC VALVE The aortic valve is normal in structure and function. Doppler and Color Flow revealed no significant aortic regurgitation. There is no significant aortic valvular stenosis. There is no aortic valvular v egetation. MITRAL VALVE The mitral valve is normal in structure and function. There is no evidence of mitral valve prolapse. There is no mitral valve stenosis. Doppler and Color Flow revealed no mitral valve regurgitation note d. TRICUSPID VALVE The tricuspid valve is normal in structure and function. Doppler and Color Flow revealed trace tricus pid regurgitation. The PA pressure was estimated at 24 mmHg. There is no tricuspid valve prolapse or vegetation. There is no tricuspid valve stenosis. PULMONIC VALVE The pulmonary valve is normal in structure and function. Doppler and Color Flow revealed no pulmonic valvular regurgitation. There is no pulmonic valvular stenosis. GREAT VESSELS The aortic root is normal in size. The ascending aorta is normal in size. The IVC is normal in size a nd collapses >50% with inspiration. PERICARDIAL EFFUSION There is no pleural effusion. There is no evidence of significant pericardial effusion. Critical Notification Critical Value: No <Conclusion> The left ventricular systolic function is normal. The ejection fraction is 60%. There is normal LV segmental wall motion. Transmitral Doppler flow pattern is Grade I-abnormal relaxation pattern. Trace tricuspid regurgitation. The PA pressure was estimated at 24 mmHg. There is no evidence of significant pericardial effusion. Signed by : Julia Dyson, Electronically Approved : 10/03/2021 09:50:23
[2021-10-03] MEDS: LABETALOL 20 MG/4 ML DISP.SYRIN. IVP PRN ×3 (11:59→16:58)
[2021-10-03] MEDS ORDERED: POTASSIUM CHLORIDE 20 MEQ TABLET.ER. PO ONE (12:45)
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
[2021-10-03] MEDS: NICOTINE 14MG PATCH. TD SCH (14:54)
--- NOTE | 2021-10-03 16:45 | NUR ---
Pt transferred to room 667 by wheelchair, no complications. All belongings are with patient.
[2021-10-03] MEDS ORDERED: hydrALAZINE 20 MG/ML VIAL. IVP PRN (17:15)
--- NOTE | 2021-10-03 19:03 | EKG ---
[facility] [address] [place] [address] Test Date: 2021-10-02 Test Time: 11:46:27 Pat Name: KENNEDY REYES Department: Room: 104 1 Gender: M Glass Fitter: : 1980 Requested By: ROMEO GAMBINO Order Number: [id number] Reading MD: Javier Petit MD Measurements Intervals [place] Rate: 89 P: 56 MD: 150 QRS: 67 QRSD: 98 T: 64 QT: 358 QTc: 442 Interpretive Statements SINUS RHYTHM INFERIOR ISCHEMIA/INJURY Electronically Signed On 10-05-2021 11:05:19 BODY PAINTER by Javier Petit MD
[2021-10-03] MEDS: ATORVASTATIN CALCIUM 20 MG TABLET PO SCH (21:16)
[2021-10-04 02:36] VITALS: BP 112/61
[2021-10-04 05:20] LABS: BASO % 0 % (0-3); EOS % 1 % (0-3); HEMATOCRIT 42.7 % (39.0-53.0); HEMOGLOBIN 14.7 g/dL (13.0-17.5); LYMPH # 1.8 x10^3/uL (1.0-4.8); LYMPH % 25 % (24-48); MEAN CORPUSCULAR HEMOGLOBIN 32 pg (25-35); MEAN CORPUSCULAR HGB CONC 35 g/dL (31-37); MEAN CORPUSCULAR VOLUME 93 fL (79-100); MONO # 0.6 x10^3/uL (0.0-1.1); MONO % 9 % (0-9); NEUT # 4.5 x10^3/uL (1.8-7.7); NEUT % 65 % (31-73); PLATELET COUNT 263 x10^3/uL (140-400); RED BLOOD COUNT 4.59 x10^6/uL (4.30-5.70); RED CELL DISTRIBUTION WIDTH 14.5 % (11.5-14.5)
[2021-10-04 05:45] LABS: ALBUMIN 3.1 g/dL (3.4-5.0); ALBUMIN/GLOBULIN RATIO 0.8 (1.0-1.7); CALCIUM 8.6 mg/dL (8.5-10.1); CREATININE 0.8 mg/dL (0.7-1.3); GFR 128.9; POTASSIUM 3.5 mmol/L (3.5-5.1); TOTAL BILIRUBIN 0.6 mg/dL (0.2-1.0); TOTAL PROTEIN 6.9 g/dL (6.4-8.2)
[2021-10-04 07:00] VITALS: BP 118/79
[2021-10-04] MEDS: INSULIN LISPRO 300 UNITS/3 ML VIAL. SQ SCH ×2 (07:30→11:30)
[2021-10-04] MEDS: CLOPIDOGREL BISULFATE 75 MG TABLET PO SCH (08:23)
[2021-10-04] MEDS: ASPIRIN ENTERIC COATED 325 MG TABLET.DR. PO SCH (08:23)
[2021-10-04] MEDS: METOPROLOL TART IMMED RELEASE 25 MG TABLET. PO SCH (08:24)
[2021-10-04] MEDS: THIAMINE 100 MG TABLET. PO SCH (08:25)
[2021-10-04] MEDS: FOLIC ACID 1 MG TABLET. PO SCH (08:25)
[2021-10-04] MEDS: NICOTINE 14MG PATCH. TD SCH (08:25)
[2021-10-04] MEDS: MULTIVITAMIN with MINERAL TABLET. PO SCH (08:25)
--- NOTE | 2021-10-04 08:28 | PDOC ---
PROGRESS NOTES Date of Service: DATE: 10/04/21 TIME: 08:28 Subjective Subjective Denied any chest pain or shortness of breath Objective Objective Vital Signs Date Time Temp Pulse Resp B/P (MAP) Pulse Ox O2 Delivery O2 Flow Rate FiO2 10/04/21 08:25 66 118/79 10/04/21 07:00 98.1 15 97 Room Air 98.1 Intake and Output 10/04/21 07:00 Intake Total 1170 ml Output Total 1200 ml Balance -30 ml Intake Oral 1170 ml Output Urine Total 1200 ml Physical Exam Abdomen: Normal bowel sounds, Soft, No tenderness, No masses Heart: Regular rate Extremities: No clubbing, No cyanosis, No edema, Normal pulses, Other (Right AKA, clean stump) General: Alert, Oriented X3, Cooperative, mild distress HEENT: Atraumatic, PERRLA, EOMI, Mucous membr. moist/pink Lungs: Clear to auscultation, Normal air movement MUSCULOSKELETAL: Other Neuro: Normal speech, Normal tone, Sensation intact, Reflexes 2+ Psych/Mental Status: Mental status NL, Mood NL Skin: No rashes, No breakdown, No significant lesion Assessment Assessment 1. Acute ST elevation myocardial infarction: Cardiac catheterization yesterday showed significant stenosis involving LAD that was treated with drug-eluting stent. 2D echo showed normal LV systolic function with EF 60%. He is currently chest pain-free. Right groin looked good. Continue dual antiplatelet therapy and secondary prevention measure. We will refer patient for cardiac rehabilitation. 2. Accelerated hypertension: Blood pressure better controlled. Continue current medical regimen 3. Hyperlipidemia: Statins 4. Tobacco and alcohol abuse: Advised on complete cessation Follow-up in 1 month Comment Review of Relevant I have reviewed the following items tarah (where applicable) has been applied. Labs Laboratory Tests Test 10/03/21 11:45 10/03/21 16:45 10/03/21 19:46 10/04/21 03:30 Glucose (Fingerstick) 133 mg/dL (70-99) 130 mg/dL (70-99) 112 mg/dL (70-99) White Blood Count 7.0 x10^3/uL (4.0-11.0) Red Blood Count 4.59 x10^6/uL (4.30-5.70) Hemoglobin 14.7 g/dL (13.0-17.5) Hematocrit 42.7 % (39.0-53.0) Mean Corpuscular Volume 93 fL (79-100) Mean Corpuscular Hemoglobin 32 pg (25-35) Mean Corpuscular Hemoglobin Concent 35 g/dL (31-37) Red Cell Distribution Width 14.5 % (11.5-14.5) Platelet Count 263 x10^3/uL (140-400) Neutrophils (%) (Auto) 65 % (31-73) Lymphocytes (%) (Auto) 25 % (24-48) Monocytes (%) (Auto) 9 % (0-9) Eosinophils (%) (Auto) 1 % (0-3) Basophils (%) (Auto) 0 % (0-3) Neutrophils # (Auto) 4.5 x10^3/uL (1.8-7.7) Lymphocytes # (Auto) 1.8 x10^3/uL (1.0-4.8) Monocytes # (Auto) 0.6 x10^3/uL (0.0-1.1) Eosinophils # (Auto) 0.0 x10^3/uL (0.0-0.7) Basophils # (Auto) 0.0 x10^3/uL (0.0-0.2) Sodium Level 139 mmol/L (136-145) Potassium Level 3.5 mmol/L (3.5-5.1) Chloride Level 104 mmol/L (98-107) Carbon Dioxide Level 23 mmol/L (21-32) Anion Gap 12 (6-14) Blood Urea Nitrogen 7 mg/dL (8-26) Creatinine 0.8 mg/dL (0.7-1.3) Estimated GFR (Cockcroft-Gault) 128.9 BUN/Creatinine Ratio 9 (6-20) Glucose Level 94 mg/dL (70-99) Calcium Level 8.6 mg/dL (8.5-10.1) Total Bilirubin 0.6 mg/dL (0.2-1.0) Aspartate Amino Transf (AST/SGOT) 95 U/L (15-37) Alanine Aminotransferase (ALT/SGPT) 74 U/L (16-63) Alkaline Phosphatase 61 U/L (46-116) Total Protein 6.9 g/dL (6.4-8.2) Albumin 3.1 g/dL (3.4-5.0) Albumin/Globulin Ratio 0.8 (1.0-1.7) Test 10/04/21 08:12 Glucose (Fingerstick) 146 mg/dL (70-99) Medications Current Medications Amlodipine Besylate (Norvasc) 2.5 mg DAILY PO Last administered on 10/04/21 08:24; Start 10/03/21 at 17:15 Hydralazine HCl (Apresoline Inj) 10 mg PRN Q4HRS PRN IVP ELEVATED BP, SEE COMMENTS; Start 10/03/21 at 17:15 Losartan Potassium (Cozaar) 100 mg DAILY PO Last administered on 10/04/21at 08:25; Start 10/04/21 at 09:00 Metoprolol Tartrate (Lopressor) 50 mg BID PO Last administered on 10/04/21at 08:2 4; Start 10/03/21 at 21:00 Nicotine (Nicoderm Cq 14mg) 1 patch DAILY TD Last administered on 10/04/21at 08:25; Start 10/03/21 at 14:30 Potassium Chloride (Klor-Con) 40 meq 1X ONCE PO Last administered on 10/03/21at 13:07; Start 10/03/21 at 12:45; Stop 10/03/21 at 12:46; Status DC Vitals/I & O Vital Sign - Last 24 Hours 10/03/21 10/03/21 10/03/21 10/03/21 09:00 10:00 11:59 12:00 Temp 98.3 98.3 Pulse 72 70 74 70 Resp 18 16 16 B/P (MAP) 183/110 (134) 174/84 (114) 164/74 164/74 (104) Pulse Ox 94 96 96 O2 Delivery Room Air Room Air Room Air 10/03/21 10/03/21 10/03/21 10/03/21 14:58 16:00 16:58 17:45 Temp 99.1 99.1 Pulse 75 70 76 82 Resp 16 B/P (MAP) 193/86 189/91 (123) 193/104 188/106 Pulse Ox 96 O2 Delivery Room Air 10/03/21 10/03/21 10/03/21 10/03/21 19:00 20:00 21:23 22:49 Temp 97.9 98.1 97.9 98.1 Pulse 76 76 83 Resp 18 18 B/P (MAP) 152/88 (109) 152/88 145/70 (95) Pulse Ox 98 98 O2 Delivery Room Air Room Air Room Air 10/04/21 10/04/21 10/04/21 10/04/21 02:36 07:00 08:24 08:24 Temp 98.0 98.1 98.0 98.1 Pulse 85 66 66 66 Resp 18 15 B/P (MAP) 112/61 (78) 118/79 (92) 118/79 118/79 Pulse Ox 99 97 O2 Delivery Room Air Room Air 10/04/21 08:25 Pulse 66 B/P (MAP) 118/79 Intake and Output 10/03/21 10/03/21 10/04/21 15:00 23:00 07:00 Intake Total 540 ml 630 ml Output Total 550 ml 350 ml 300 ml Balance -10 ml 280 ml -300 ml JULIA WARREN MD Oct 04, 2021 08:28
[2021-10-04] MEDS ORDERED: LOSARTAN POTASSIUM 25 MG TABLET. PO SCH (09:00)
[2021-10-04 11:00] VITALS: BP 145/86
[2021-10-04] MEDS ORDERED: ATOR20TA58 PO (12:06)
[2021-10-04] MEDS ORDERED: LOSA25TA54 PO (12:06)
[2021-10-04] MEDS ORDERED: NITR0.4T24 SL (12:06)
[2021-10-04] MEDS ORDERED: CLOP75TA PO (12:06)
[2021-10-04] MEDS ORDERED: METO25TA4 PO (12:06)
[2021-10-04] MEDS ORDERED: ASPI325T11 PO (12:06)
[2021-10-04] MEDS ORDERED: AMLO-186 PO (12:06)
--- NOTE | 2021-10-04 12:50 | NUR ---
Discharge Note: KENNEDY REYES Discharge instructions and discharge home medications reviewed with Patient and a copy given. All questions have been answered and understanding verbalized. The following instructions and handouts were given: metoprolol, nitroglycerin, clopidogrel, aspirin, atorvastatin, cardiac cathertization post care, losartan, amlodipine. Patient discharged to home with self care via wheelchair.
== END 2021-10-04 12:50 | disposition home or self-care (01) | DRG 247 ==
LOC: CCL 11:37 → 1 WEST ICU 12:01 → 6 SOUTH 10-03 19:20
PROVIDERS: ADMIT Internal Medicine; ATTEND Internal Medicine
PROC: 027034Z Dilation of Coronary Artery, One Artery with Drug-eluting Intraluminal Device, Percutaneous Approach (ICD-10-PCS; principal; 2021-10-02)
PROC: 4A023N7 Measurement of Cardiac Sampling and Pressure, Left Heart, Percutaneous Approach (ICD-10-PCS; 2021-10-02)
PROC: B2111ZZ Fluoroscopy of Multiple Coronary Arteries using Low Osmolar Contrast (ICD-10-PCS; 2021-10-02)
PROC: B2151ZZ Fluoroscopy of Left Heart using Low Osmolar Contrast (ICD-10-PCS; 2021-10-02)
DX: I21.02 ST elevation (STEMI) myocardial infarction involving left anterior descending coronary artery (principal); I47.2 Ventricular tachycardia; E78.5 Hyperlipidemia, unspecified; F10.20 Alcohol dependence, uncomplicated; F17.210 Nicotine dependence, cigarettes, uncomplicated; I10 Essential (primary) hypertension; Y90.9 Presence of alcohol in blood, level not specified; I25.10 Atherosclerotic heart disease of native coronary artery without angina pectoris; Z83.3 Family history of diabetes mellitus; Z89.611 Acquired absence of right leg above knee; Z88.5 Allergy status to narcotic agent; Z71.6 Tobacco abuse counseling; Z71.41 Alcohol abuse counseling and surveillance of alcoholic
CPT/HCPCS: 92941; 93458; G0269; 36415; 71045; 80053; 80061; 82962; 83036; 83880; 84443; 84484; 85025; 85027; 85610; 85730; 93005; 93306; 96361; 96374; 99152; 99153; C1874; C1894; J0360; J0583; J1644; J1815; J2250; J2270; J2405; J3010; J3490; J7030; Q9967; 99291-25; C1725; C8929; G0378